=== PATIENT | female | born 1940 | race Two or more races ===

== ENCOUNTER 2022-03-30 18:23 | Emergency (ER) | payer MEDICARE ==
[~2022-03-30] VITALS: Ht 167.6 cm; Wt 49.9 kg
--- NOTE | 2022-03-30 19:25 | NUR ---
PT TAKEN TO RADIOLOGY VIA [facility].
[2022-03-30 20:07] LABS: BASOPHILS % (AUTO) 0.5 % (0.0-2.0); EOSINOPHILS % (AUTO) 3.7 % (0.0-6.0); HEMATOCRIT 32 % (33-45); HEMOGLOBIN 10.8 g/dL (11.5-14.8); LYMPHOCYTES # (AUTO) 1.9 K/uL (0.8-4.8); LYMPHOCYTES % (AUTO) 20.5 % (20.0-44.0); MEAN CORPUSCULAR HGB CONC 33 g/dl (31.0-36.0); MEAN CORPUSCULAR VOLUME 87 fL (82-100); MONOCYTES # (AUTO) 0.9 K/uL (0.1-1.30); MONOCYTES % (AUTO) 9.4 % (2.0-12.0); NEUTROPHILS % (AUTO) 65.9 % (43.0-81.0); PLATELET COUNT (AUTO) 262 K/uL (150-450); RED BLOOD CELL COUNT(AUTO) 3.71 MIL/uL (4.0-5.2); WHITE BLOOD COUNT (AUTO) 9.1 K/uL (4.3-11.0)
[2022-03-30 20:23] LABS: CALCIUM, SERUM 9.1 mg/dL (8.5-10.1); CARBON DIOXIDE 32 mmol/L (21-32); CHLORIDE 106 mmol/L (98-107); CREATININE 0.9 mg/dL (0.6-1.3); GLUCOSE 99 mg/dL (74-106); POTASSIUM 4.3 mmol/L (3.5-5.1); SODIUM SERUM 140 mmol/L (136-145); UREA NITROGEN, BLOOD 20 mg/dL (7-18)
[2022-03-30 20:30] LABS: ALANINE AMINOTRANSFERASE 40 U/L (12-78); ALBUMIN 3.5 g/dL (3.4-5.0); ALKALINE PHOSPHATASE 124 U/L (46-116); ASPARTATE AMINOTRANSFERASE 23 U/L (15-37); BILIRUBIN,TOTAL 0.2 mg/dL (0.2-1.0); TOTAL PROTEIN, SERUM 6.7 g/dL (6.4-8.2)
[2022-03-30 20:31] LABS: ALCOHOL, BLOOD < 3 mg/dL (0-0)
[2022-03-30 20:44] LABS: CREATINE KINASE, TOTAL 49 U/L (26-192)
[2022-03-30] MEDS ORDERED: IV NS 0.9% 1,000 ML IV ONE (21:00)
--- NOTE | 2022-03-30 21:14 | NUR ---
urine collected sent to lab
[2022-03-30 21:28] VITALS: BP 121/66
[2022-03-30 21:28] LABS: BILIRUBIN,URINE NEGATIVE (NEGATIVE); COLOR,URINE YELLOW (YELLOW); LEUKOCYTE ESTERASE ,URINE NEGATIVE (NEGATIVE); NITRITE, URINE NEGATIVE (NEGATIVE); PROTEIN,URINE NEGATIVE (NEGATIVE); UGLUCOSE NEGATIVE (NEGATIVE); UROBILINOGEN,URINE 0.2 EU/dL (0.2)
--- NOTE | 2022-03-30 22:29 | NUR ---
[facility] [phone] [facility] [phone] FACILITY
--- NOTE | 2022-03-30 22:33 | NUR ---
[facility] CALLED FOR BLS BACK TO [facility] ETA - 2 HOURS
--- NOTE | 2022-03-31 00:31 | NUR ---
reprot given to ems at bedside
== END 2022-03-31 00:32 | disposition home or self-care (01) ==
LOC: ER 19:15
DX: G30.9 Alzheimer's disease, unspecified (principal); F02.80 Dementia in other diseases classified elsewhere, unspecified severity, without behavioral disturbance, psychotic disturbance, mood disturbance, and anxiety; I10 Essential (primary) hypertension; Z87.81 Personal history of (healed) traumatic fracture; Z86.69 Personal history of other diseases of the nervous system and sense organs
CPT/HCPCS: 36415; 70450; 70486; 71045; 72125; 72170; 73552; 80048; 80076; 80307; 80320; 81003; 82550; 84484 ×2; 85025; 93005 ×2; 96360; 99285; J7030; G0480

== ENCOUNTER 2022-06-04 17:49 | Inpatient (IN) | payer MEDICARE ==
[~2022-06-04] VITALS: Ht 160 cm; Wt 47.2 kg
--- NOTE | 2022-06-04 19:08 | NUR ---
[facility]IB ADMIN OF [facility] ADMIN NAME IS JODIE [phone], PT WAS SCREAMING YELLING SPITTING OUT FOOD, PILLS, AND TALKING INAPPROPRIATE TO OTHER RESIDENTS AND STAFF BROUGHT IN FOR MEDICAL AND PSYCH EVAL OF MEDS AND BEHAVIOR
--- NOTE | 2022-06-04 19:30 | NUR ---
[facility] at [facility] phone # [phone] address: [address] [place] [address]
--- NOTE | 2022-06-04 19:35 | NUR ---
COVID ANTIGEN SWAB COLLECTED AND SENT TO LAB
--- NOTE | 2022-06-04 20:07 | NUR ---
ACCOUNT MANAGER RELIEF AT PT'S BEDSIDE
[2022-06-04 20:35] LABS: BASOPHILS # (AUTO) 0.1 K/uL (0.0-0.2); BASOPHILS % (AUTO) 0.6 % (0.0-2.0); HEMATOCRIT 32 % (33-45); HEMOGLOBIN 10.5 g/dL (11.5-14.8); LYMPHOCYTES % (AUTO) 17.3 % (20.0-44.0); MEAN CORPUSCULAR HGB CONC 33 g/dl (31.0-36.0); MEAN CORPUSCULAR VOLUME 88 fL (82-100); MONOCYTES % (AUTO) 8.5 % (2.0-12.0); NEUTROPHILS # (AUTO) 8.1 K/uL (1.8-8.9); NEUTROPHILS % (AUTO) 70.6 % (43.0-81.0); PLATELET COUNT (AUTO) 242 K/uL (150-450); RED BLOOD CELL COUNT(AUTO) 3.58 MIL/uL (4.0-5.2); WHITE BLOOD COUNT (AUTO) 11.5 K/uL (4.3-11.0)
--- NOTE | 2022-06-04 20:41 | NUR ---
URINE COLLECTED AND SENT TO LAB
[2022-06-04 20:53] LABS: CALCIUM, SERUM 9.4 mg/dL (8.5-10.1); CARBON DIOXIDE 30 mmol/L (21-32); CHLORIDE 107 mmol/L (98-107); CREATININE 0.9 mg/dL (0.6-1.3); GLUCOSE 106 mg/dL (74-106); POTASSIUM 4.2 mmol/L (3.5-5.1); SODIUM SERUM 141 mmol/L (136-145); UREA NITROGEN, BLOOD 24 mg/dL (7-18)
[2022-06-04 21:01] LABS: ALANINE AMINOTRANSFERASE 34 U/L (12-78); ALBUMIN 3.4 g/dL (3.4-5.0); ALCOHOL, BLOOD < 3 mg/dL (0-0); ALKALINE PHOSPHATASE 95 U/L (46-116); ASPARTATE AMINOTRANSFERASE 18 U/L (15-37); BILIRUBIN,TOTAL 0.2 mg/dL (0.2-1.0); TOTAL PROTEIN, SERUM 6.5 g/dL (6.4-8.2)
[2022-06-04 21:09] LABS: ACETAMINOPHEN < 2 ug/ml (10-30)
[2022-06-04 21:19] LABS: BILIRUBIN,URINE NEGATIVE (NEGATIVE); LEUKOCYTE ESTERASE ,URINE LARGE (NEGATIVE); NITRITE, URINE NEGATIVE (NEGATIVE); PROTEIN,URINE 30 mg/dl (NEGATIVE); UGLUCOSE NEGATIVE (NEGATIVE); UROBILINOGEN,URINE 0.2 EU/dL (0.2)
[2022-06-04 21:28] LABS: COLOR,URINE LIGHT YELLOW (YELLOW)
[2022-06-04 21:37] LABS: BACTERIA,URINE Many /HPF (None Seen); RBC,URINE TOO NUMEROUS TO COUN /HPF (0-2); SQUAMOUS EPITHELIAL CELL,UR Few /HPF (None Seen); WBC,URINE TOO NUMEROUS TO COUN /HPF (0-3)
[2022-06-04] MEDS ORDERED: CEPH500C2 PO (21:45)
[2022-06-04] MEDS ORDERED: CEPHALEXIN MONOHYDRATE 500 MG CAPSULE PO ONE (22:00)
--- NOTE | 2022-06-04 22:17 | NUR ---
CARLEEN BAKER DNP AT PT'S BEDSIDE FOR LUISAL
--- NOTE | 2022-06-04 22:33 | NUR ---
called [facility] THORNE for psych eval
--- NOTE | 2022-06-04 23:28 | NUR ---
[facility] THORNE at bed side for psych eval
--- NOTE | 2022-06-05 00:11 | NUR ---
REPORT GIVEN TO KEN ORNELAS RN FOR NELLY
--- NOTE | 2022-06-05 01:06 | NUR ---
PT PLACED ON A 5150 HOLD FOR DANGER TO OTHERS/ GRAVELY DISABLED BY TOMA THORNE AT 06/05/22 0043
--- NOTE | 2022-06-05 01:15 | NUR ---
PT TRANSFERRED TO GPS UNIT VIA HOSPITAL PROTOCOL. ALL BELONGINGS WITH PT.
[2022-06-05] MEDS ORDERED: MEMA10TA PO (01:28)
[2022-06-05] MEDS ORDERED: ASCO500T10 PO (01:28)
[2022-06-05] MEDS ORDERED: SIME80TA15 PO (01:28)
[2022-06-05] MEDS ORDERED: MULT-754 PO (01:28)
[2022-06-05] MEDS ORDERED: FAMO20TA8 PO (01:28)
[2022-06-05] MEDS ORDERED: QUET100T PO (01:28)
[2022-06-05] MEDS ORDERED: BENA10TA74 PO (01:28)
[2022-06-05] MEDS ORDERED: LEVO25TA7 PO (01:28)
[2022-06-05] MEDS ORDERED: LORA-259 PO (01:28)
[2022-06-05] MEDS ORDERED: DOCU100C36 PO (01:28)
[2022-06-05] MEDS ORDERED: ATEN50TA PO (01:28)
[2022-06-05] MEDS ORDERED: QUET25TA PO (01:28)
[2022-06-05] MEDS ORDERED: GABA-532 PO (01:28)
[2022-06-05] MEDS ORDERED: FERR325T23 PO (01:28)
[2022-06-05] MEDS ORDERED: LITH150C PO (01:28)
--- NOTE | 2022-06-05 01:29 | NUR ---
Spoke to Abby from [facility] phone # [phone]; stated not able to fax pt's med list. Recieved med list via phonecall and med recon done.
[2022-06-05] MEDS ORDERED: ACETAMINOPHEN 325 MG TABLET PO PRN (01:30)
[2022-06-05] MEDS ORDERED: BLOOD SUGAR DIAGNOSTIC 1 EACH STRIP IN ONE (01:30)
[2022-06-05] MEDS ORDERED: MAG HYDROX/AL HYDROX/SIMETH 30 ML UDC PO PRN (01:30)
[2022-06-05] MEDS ORDERED: MAGNESIUM HYDROXIDE 30 ML UDC PO PRN (01:30)
[2022-06-05 01:44] VITALS: BP 142/94
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
--- NOTE | 2022-06-05 04:32 | NUR ---
GPS RN NOTE PATIENT IS SLEEPING COMFORTABLY AT THIS TIME.
--- NOTE | 2022-06-05 04:39 | NUR ---
GPS RN NOTE: CALLED [facility] AND SPOKE TO ULYSSES CANTU TO GET INFORMATION REGARDING PATIENT'S COVID VACCINE BUT ULYSSES CANTU STATED THAT SHE WILL RELAY THE MESSAGE TO AM STAFF AND AM STAFF WILL FAX PATIENT'S COVID VACCINE INFO AT [phone] (GPS UNIT FAX NUMBER). WILL ENDORSE TO AM RN TO FOLLOW UP IN AM.
--- NOTE | 2022-06-05 06:25 | NUR ---
NOTIFIED SAMUEL DURANT TO RECONCILE PATIENT'S HOME MEDS.
--- NOTE | 2022-06-05 06:35 | NUR ---
RN NOTE: NOTIFIED DAUGHTER CALLED PATIENT'S DAUGHTER LILIANE AT [phone] AND NOTIFIED ABOUT PATIENT'S ADMISSION AT [facility]. CHIEF MEDICAL TECHNOLOGIST ALSO ASKED THE DAUGHTER ABOUT PATIENT'S CODE STATUS AND DAUGHTER STATED THAT HER MOTHER WISHES TO BE DNR. LILIANE ALSO PROVIDED COVID VACCINE INFORMATION.
--- NOTE | 2022-06-05 07:30 | NUR ---
GPS RN OPENING NOTE PATIENT IS IN BED, ASLEEP BUT EASILY AROUSABLE. BREATHING UNLABORED AND NOT IN ANY FORM OF DISTRESS. ALL HOSPITAL SAFETY PRECAUTIONS KEPT IN PLACE. WILL CONTINUE TO MONITOR THROUGHOUT SHIFT.
[2022-06-05 08:00] VITALS: BP 92/51
[2022-06-05] MEDS: CEPHALEXIN MONOHYDRATE 500 MG CAPSULE PO SCH ×2 (08:16→16:28)
[2022-06-05 08:30] LABS: CREATININE 0.9 mg/dL (0.6-1.3)
[2022-06-05] MEDS: OLANZAPINE 2.5 MG TABLET PO SCH ×3 (12:38→21:58)
--- NOTE | 2022-06-05 15:00 | NUR ---
RN NOTE NOTIFIED DR. FORD TO RECONCILE HOME MEDS.
--- NOTE | 2022-06-05 15:24 | NUR ---
Initial Discharge Plan: The pt. currently resides at [[facility] [address] [place] [address]; [phone]]. Per DPOA/Daughter,Radha Anand [phone] stated that she would like the pt. to return to [facility] when the pt. is ready for discharge. SCOTT called [facility] and spoke to the fence erector supervisor, Briana [phone] who stated that the pt. is welcome back to the facility when ready to discharge. SCOTT will continue to collaborate with the patient's family and the interdisciplinary team to ensure a safe & proper discharge.
--- NOTE | 2022-06-05 15:26 | NUR ---
Family Contact: SCOTT called her daughter, Radha Anand at [phone] to gather collateral information. Per daughter, Radha, the pt. was diagnosed with Vascular Dementia with Alzheimers components. about 1 year ago and her memory and functioning made steadily declined since. Per Radha,the pt. was hospitalized at [facility] on December 2021 for unmanageable behavior. Radha provided patient's history. SCOTT provided Radha with [facility] Carol CHAVEZ's number and unit number.
[2022-06-05 16:00] VITALS: BP 135/51
[2022-06-05] MEDS: LITHIUM CARBONATE 150 MG CAPSULE PO SCH (16:27)
--- NOTE | 2022-06-05 16:30 | NUR ---
RN NOTE PATIENT WAS OBSERVED TO BE AGITATED AND CURSING AT CHAPTER RELATIONS ADMINISTRATOR WHEN SHE WAS BROUGHT TO ACTIVITY ROOM, STATING THAT SHE JUST WANTS TO STAY IN BED.
--- NOTE | 2022-06-05 18:44 | NUR ---
RN CLOSING NOTE PATIENT'S VITAL SIGNS REMAINED STABLE THROUGHOUT SHIFT. SHE, HOWEVER, REMAINED CONFUSED, AND WAS OCCASIONALLY OBSERVED TO BE AGITATED WHEN GOING OUT OF THE ROOM. ALL OF HER NEEDS WERE ATTENDED TO AND ALL HOSPITAL SAFETY PRECAUTIONS WERE KEPT IN PLACE.WILL ENDORSE TO COMPUTER ART INSTRUCTOR NURSE.
[2022-06-05 20:00] VITALS: BP 157/75
--- NOTE | 2022-06-05 23:00 | NUR ---
NOTIFIED CARLEEN BAKER THAT PATIENT'S HOME MEDS NEEDS TO BE RECONCILED YET, MED RECON DONE BY CARLEEN BAKER.
[2022-06-06] MEDS: LEVOTHYROXINE SODIUM 25 MCG TABLET PO SCH (07:42)
[2022-06-06 07:59] LABS: CHOLESTEROL 183 mg/dL (<200); HDL CHOLESTEROL 66 mg/dL (40-60); LDL 88 mg/dL (0-99); TRIGLYCERIDES 124 mg/dL (30-150)
[2022-06-06 08:00] VITALS: BP 130/58
[2022-06-06] MEDS: ASCORBIC ACID 500 MG TABLET PO SCH (08:25)
[2022-06-06] MEDS: SIMETHICONE 80 MG TAB.CHEW PO SCH (08:25)
[2022-06-06] MEDS: DOCUSATE SODIUM 100 MG CAPSULE PO SCH (08:26)
[2022-06-06] MEDS: MULTIVITAMINS,THERAGRAN 1 UDTAB TABLET PO SCH (08:26)
[2022-06-06] MEDS: OLANZAPINE 2.5 MG TABLET PO SCH ×4 (08:26→21:19)
[2022-06-06] MEDS: BENAZEPRIL HCL 10 MG TABLET PO SCH (08:26)
[2022-06-06] MEDS: FERROUS SULFATE (325 MG) 325 MG/TAB TABLET PO SCH (08:27)
[2022-06-06] MEDS: FAMOTIDINE (20 MG) 20 MG TABLET PO SCH (08:27)
[2022-06-06] MEDS: CEPHALEXIN MONOHYDRATE 500 MG CAPSULE PO SCH ×2 (08:27→16:10)
[2022-06-06] MEDS: LITHIUM CARBONATE 150 MG CAPSULE PO SCH ×2 (08:27→16:10)
[2022-06-06] MEDS: MEMANTINE HCL 5 MG TABLET PO SCH ×2 (08:27→16:10)
[2022-06-06] MEDS: ATENOLOL 50 MG TABLET PO SCH (08:28)
[2022-06-06 16:00] VITALS: BP 110/59
--- NOTE | 2022-06-06 17:14 | NUR ---
RN CLOSING NOTE PATIENT'S VITAL SIGNS REMAINED STABLE THROUGHOUT SHIFT. PT REMAINED CONFUSED, AND WAS OCCASIONALLY OBSERVED TO BE AGITATED WHEN GOING OUT OF THE ROOM. ALL OF HER NEEDS WERE ATTENDED TO AND ALL HOSPITAL SAFETY PRECAUTIONS WERE KEPT IN PLACE. WILL ENDORSE TO PROJECT COORDINATOR RN NURSE FOR NELLY.
--- NOTE | 2022-06-06 19:15 | NUR ---
GPS RN NOTES PATIENT IN BED RESTING COMFORTABLY. AWAKE, ALERT AND ORIENTED X1, NO S/SX OF ACUTE DISTRESS NOTED. PATIENT REMAINS LABILE, CONFUSED, NONSENSICAL AT TIMES. NO VERBALIZATION OF THOUGHTS OR FEELINGS.SAFETY MEASURES IN PLACE. WILL CONTINUE TO MONITOR Q15MIN ROUNDS FOR SAFETY AND BEHAVIOR.
[2022-06-06 20:00] VITALS: BP 127/71
[2022-06-07] MEDS: TEMAZEPAM 7.5 MG CAPSULE PO PRN (00:52)
[2022-06-07] MEDS: LEVOTHYROXINE SODIUM 25 MCG TABLET PO SCH (06:16)
[2022-06-07 08:00] VITALS: BP 102/72
[2022-06-07] MEDS: FERROUS SULFATE (325 MG) 325 MG/TAB TABLET PO SCH (08:49)
[2022-06-07] MEDS: SIMETHICONE 80 MG TAB.CHEW PO SCH (08:49)
[2022-06-07] MEDS: FAMOTIDINE (20 MG) 20 MG TABLET PO SCH (08:50)
[2022-06-07] MEDS: OLANZAPINE 2.5 MG TABLET PO SCH ×4 (08:50→21:22)
[2022-06-07] MEDS: ASCORBIC ACID 500 MG TABLET PO SCH (08:50)
[2022-06-07] MEDS: MEMANTINE HCL 5 MG TABLET PO SCH ×2 (08:50→16:20)
[2022-06-07] MEDS: DOCUSATE SODIUM 100 MG CAPSULE PO SCH (08:50)
[2022-06-07] MEDS: LITHIUM CARBONATE 150 MG CAPSULE PO SCH ×2 (08:51→16:20)
[2022-06-07] MEDS: BENAZEPRIL HCL 10 MG TABLET PO SCH (08:51)
[2022-06-07] MEDS: ATENOLOL 50 MG TABLET PO SCH (08:52)
[2022-06-07] MEDS: MULTIVITAMINS,THERAGRAN 1 UDTAB TABLET PO SCH (08:52)
[2022-06-07] MEDS: CEPHALEXIN MONOHYDRATE 500 MG CAPSULE PO SCH ×2 (08:55→16:53)
[2022-06-07 16:00] VITALS: BP 122/57
--- NOTE | 2022-06-07 19:18 | NUR ---
RN OPENING NOTE PATIENT IN BED, AWAKE. PATIENT IS ON RA, TOLERATING WELL, NO SOB OR RESPIRATORY DISTRESS NOTED. PATIENT IS A/O X 1, CONFUSED. SAFETY MEASURES IN PLACE: BED LOCKED AND IN LOWEST POSITION, BED ALARM ON. PATIENT DOES NOT REPORT OF ANY SI. WILL MONITOR PATIENT Q15 MIN FOR PATIENT SAFETY.
[2022-06-07 20:00] VITALS: BP 128/60
[2022-06-08] MEDS: LEVOTHYROXINE SODIUM 25 MCG TABLET PO SCH (06:08)
--- NOTE | 2022-06-08 06:08 | NUR ---
RN NOTE PATIENT REFUSED LEVOTHYROXINE, RISK AND BENEFITS EXPLAINED BUT PATIENT STILL KEPT SAYING "NO, I DON'T WANT TO TAKE THAT".
[2022-06-08 08:00] VITALS: BP 110/69
[2022-06-08] MEDS: LITHIUM CARBONATE 150 MG CAPSULE PO SCH ×2 (08:35→16:19)
[2022-06-08] MEDS: MULTIVITAMINS,THERAGRAN 1 UDTAB TABLET PO SCH (08:35)
[2022-06-08] MEDS: MEMANTINE HCL 5 MG TABLET PO SCH ×2 (08:35→16:19)
[2022-06-08] MEDS: SIMETHICONE 80 MG TAB.CHEW PO SCH (08:35)
[2022-06-08] MEDS: ASCORBIC ACID 500 MG TABLET PO SCH (08:36)
[2022-06-08] MEDS: OLANZAPINE 2.5 MG TABLET PO SCH ×4 (08:36→21:19)
[2022-06-08] MEDS: FAMOTIDINE (20 MG) 20 MG TABLET PO SCH (08:36)
[2022-06-08] MEDS: BENAZEPRIL HCL 10 MG TABLET PO SCH (08:36)
[2022-06-08] MEDS: CEPHALEXIN MONOHYDRATE 500 MG CAPSULE PO SCH ×2 (08:36→16:19)
[2022-06-08] MEDS: ATENOLOL 50 MG TABLET PO SCH (08:37)
[2022-06-08] MEDS: DOCUSATE SODIUM 100 MG CAPSULE PO SCH (08:37)
[2022-06-08] MEDS: FERROUS SULFATE (325 MG) 325 MG/TAB TABLET PO SCH (08:49)
[2022-06-08 16:00] VITALS: BP 118/68
--- NOTE | 2022-06-08 18:42 | NUR ---
RN NOTES PATIENT RESTING IN BED. ASLEEP, EASILY AROUSED. VERBALLY RESPONSIVE, A/O X1, WITH CONFUSION. NO SIGNS OF ACUTE RESPIRATORY DISTRESS NOTED. COMPLIANT WITH MEDS. UP IN JAJA CHAIR EARLIER OF THE SHIFT SECONDARY TO EPISODES OF TRYING TO GET OOB, HIGH FALL RISK. SAFETY MEASURES MAINTAINED. BED IN LOWEST AND LOCKED POSITION, SIDE RAILS UP, BED ALARM ON, NEEDS ATTENDED. WILL ENDORSE TO NEXT SHIFT FOR CONTINUITY OF CARE.
[2022-06-08 20:12] VITALS: BP 117/66
--- NOTE | 2022-06-09 07:30 | NUR ---
GPS RN OPENING NOTE PATIENT IN BED, ASLEEP . ON ROOM AIR , TOLERATING WELL, NO SOB OR RESPIRATORY DISTRESS NOTED. PATIENT IS A/O X 1, CONFUSED. SAFETY MEASURES IN PLACE: BED LOCKED AND IN LOWEST POSITION, BED ALARM ON. PATIENT DOES NOT REPORT OF ANY SI. WILL MONITOR PATIENT Q15 MIN FOR PATIENT SAFETY.
[2022-06-09 08:00] VITALS: BP 99/59
[2022-06-09] MEDS: DOCUSATE SODIUM 100 MG CAPSULE PO SCH ×2 (09:00→09:02)
[2022-06-09] MEDS: SIMETHICONE 80 MG TAB.CHEW PO SCH ×2 (09:00→09:12)
[2022-06-09] MEDS: MEMANTINE HCL 5 MG TABLET PO SCH ×2 (09:00→09:07)
[2022-06-09] MEDS: CEPHALEXIN MONOHYDRATE 500 MG CAPSULE PO SCH ×2 (09:00→09:03)
[2022-06-09] MEDS: MULTIVITAMINS,THERAGRAN 1 UDTAB TABLET PO SCH ×2 (09:00→09:09)
[2022-06-09] MEDS: FERROUS SULFATE (325 MG) 325 MG/TAB TABLET PO SCH ×2 (09:00→09:02)
[2022-06-09] MEDS: LEVOTHYROXINE SODIUM 25 MCG TABLET PO SCH ×2 (09:00→09:02)
[2022-06-09] MEDS: OLANZAPINE 2.5 MG TABLET PO SCH ×4 (09:00→21:12)
[2022-06-09] MEDS: BENAZEPRIL HCL 10 MG TABLET PO SCH ×2 (09:00→09:03)
[2022-06-09] MEDS: ATENOLOL 50 MG TABLET PO SCH ×2 (09:00→09:04)
[2022-06-09] MEDS: ASCORBIC ACID 500 MG TABLET PO SCH ×2 (09:00→09:03)
[2022-06-09] MEDS: FAMOTIDINE (20 MG) 20 MG TABLET PO SCH ×2 (09:00→09:04)
[2022-06-09] MEDS: LITHIUM CARBONATE 150 MG CAPSULE PO SCH ×2 (09:00→09:07)
--- NOTE | 2022-06-09 12:08 | NUR ---
RN NOTES PATIENT REFUSED TO TAKE THE 0900 DUE MEDS AND OFFERED 3X STILL REFUSING
[2022-06-09] MEDS: LORAZEPAM 0.5 MG TABLET PO PRN (15:05)
--- NOTE | 2022-06-09 15:10 | NUR ---
RN NOTE PATIENT NOTED TO BE ANXIOUS AND TRIED TO CLIMB OUT OF BED ,ATIVAN 0.5MG GIVEN ORDERED
[2022-06-09 16:00] VITALS: BP 101/63
--- NOTE | 2022-06-09 18:27 | NUR ---
GPS RN CLOSING NOTES PATIENT RESTING IN BED. AWAKE, A/O X1, VERBALLY RESPONSIVE.DUE MEDS GIVEN ORDERED AND COMPLIANT WITH CARE , NO SIGNS OF ACUTE RESPIRATORY DISTRESS NOTED. PATIENT COOPERATIVE, PLEASANTLY CONFUSED, REDIRECTABLE. SAFETY MEASURES MAINTAINED. BED IN LOWEST AND LOCKED POSITION, SIDE RAILS UP, ENDORSED TO NEXT SHIFT
[2022-06-09 20:08] VITALS: BP 139/65
[2022-06-10 08:00] VITALS: BP_SYST 116; BP_SYST 125; BP_DIAS 60; BP_DIAS 87
[2022-06-10] MEDS: OLANZAPINE 2.5 MG TABLET PO SCH ×4 (08:47→21:52)
[2022-06-10] MEDS: LITHIUM CARBONATE 150 MG CAPSULE PO SCH ×2 (08:47→16:00)
[2022-06-10] MEDS: SIMETHICONE 80 MG TAB.CHEW PO SCH (08:47)
[2022-06-10] MEDS: ASCORBIC ACID 500 MG TABLET PO SCH (08:48)
[2022-06-10] MEDS: CEPHALEXIN MONOHYDRATE 500 MG CAPSULE PO SCH (08:48)
[2022-06-10] MEDS: MEMANTINE HCL 5 MG TABLET PO SCH ×2 (08:48→16:00)
[2022-06-10] MEDS: DOCUSATE SODIUM 100 MG CAPSULE PO SCH (08:48)
[2022-06-10] MEDS: MULTIVITAMINS,THERAGRAN 1 UDTAB TABLET PO SCH (08:48)
[2022-06-10] MEDS: FAMOTIDINE (20 MG) 20 MG TABLET PO SCH (08:48)
[2022-06-10] MEDS: FERROUS SULFATE (325 MG) 325 MG/TAB TABLET PO SCH (08:48)
[2022-06-10] MEDS: BENAZEPRIL HCL 10 MG TABLET PO SCH (08:49)
[2022-06-10] MEDS: ATENOLOL 50 MG TABLET PO SCH (08:49)
[2022-06-10 16:00] VITALS: BP 104/55
[2022-06-10 19:56] VITALS: BP 109/54
[2022-06-10 20:00] VITALS: BP 109/54
[2022-06-11] MEDS: LEVOTHYROXINE SODIUM 25 MCG TABLET PO SCH (07:32)
[2022-06-11 08:00] VITALS: BP 101/56
[2022-06-11] MEDS: SIMETHICONE 80 MG TAB.CHEW PO SCH (08:21)
[2022-06-11] MEDS: MULTIVITAMINS,THERAGRAN 1 UDTAB TABLET PO SCH (08:21)
[2022-06-11] MEDS: LITHIUM CARBONATE 150 MG CAPSULE PO SCH ×2 (08:21→17:00)
[2022-06-11] MEDS: DOCUSATE SODIUM 100 MG CAPSULE PO SCH (08:21)
[2022-06-11] MEDS: MEMANTINE HCL 5 MG TABLET PO SCH ×2 (08:21→16:59)
[2022-06-11] MEDS: FERROUS SULFATE (325 MG) 325 MG/TAB TABLET PO SCH (08:22)
[2022-06-11] MEDS: FAMOTIDINE (20 MG) 20 MG TABLET PO SCH (08:22)
[2022-06-11] MEDS: BENAZEPRIL HCL 10 MG TABLET PO SCH (08:22)
[2022-06-11] MEDS: ATENOLOL 50 MG TABLET PO SCH (08:22)
[2022-06-11] MEDS: ASCORBIC ACID 500 MG TABLET PO SCH (08:24)
[2022-06-11] MEDS: OLANZAPINE 2.5 MG TABLET PO SCH ×4 (09:24→21:26)
--- NOTE | 2022-06-11 09:46 | NUR ---
Individual Therapy: SW met with pt to conduct brief therapy. Pt appeared confused and was barely alert and oriented to self. Pt unable to have a proper conversation at this time due to his confusion.
[2022-06-11 16:00] VITALS: BP 149/68
[2022-06-11 20:11] VITALS: BP 111/49
[2022-06-12] MEDS: LEVOTHYROXINE SODIUM 25 MCG TABLET PO SCH (07:29)
[2022-06-12 08:00] VITALS: BP 107/59
[2022-06-12] MEDS: MEMANTINE HCL 5 MG TABLET PO SCH ×2 (08:53→17:08)
[2022-06-12] MEDS: SIMETHICONE 80 MG TAB.CHEW PO SCH (08:53)
[2022-06-12] MEDS: ATENOLOL 50 MG TABLET PO SCH (08:54)
[2022-06-12] MEDS: DOCUSATE SODIUM 100 MG CAPSULE PO SCH (08:54)
[2022-06-12] MEDS: MULTIVITAMINS,THERAGRAN 1 UDTAB TABLET PO SCH (08:55)
[2022-06-12] MEDS: ASCORBIC ACID 500 MG TABLET PO SCH (08:55)
[2022-06-12] MEDS: FERROUS SULFATE (325 MG) 325 MG/TAB TABLET PO SCH (08:55)
[2022-06-12] MEDS: ENSURE ENLIVE 237 ML LIQUID (VANILLA) PO SCH (08:55)
[2022-06-12] MEDS: LITHIUM CARBONATE 150 MG CAPSULE PO SCH ×2 (08:56→17:10)
[2022-06-12] MEDS: BENAZEPRIL HCL 10 MG TABLET PO SCH (08:58)
[2022-06-12] MEDS: FAMOTIDINE (20 MG) 20 MG TABLET PO SCH (08:59)
[2022-06-12] MEDS: OLANZAPINE 2.5 MG TABLET PO SCH ×3 (09:20→17:09)
--- NOTE | 2022-06-12 14:08 | NUR ---
Court Notification: SW contacted pt's daughter Radha ([phone]) and left a voicemail.
--- NOTE | 2022-06-12 14:09 | NUR ---
Court Hearing: Patient's court hearing for 3750 was today and it was upheld for GD.
[2022-06-12 16:00] VITALS: BP 100/66
[2022-06-12] MEDS: OLANZAPINE 5 MG TABLET PO SCH (21:25)
[2022-06-12] MEDS: TEMAZEPAM 7.5 MG CAPSULE PO PRN (22:58)
[2022-06-13] MEDS: LEVOTHYROXINE SODIUM 25 MCG TABLET PO SCH (06:42)
[2022-06-13 08:00] VITALS: BP 133/62
--- NOTE | 2022-06-13 08:14 | NUR ---
Facility Contact: SW called [facility] and left a detailed voicemail to contact centre supervisor, Briana [phone] that pt's dc will be sometime next week.
--- NOTE | 2022-06-13 09:53 | NUR ---
Facility Contact: SCOTT called [facility] and spoke with boat outfitting supervisor, Briana [phone] and notified that pt will be ready for dc sometime next week. She requested medication list ([phone]) and SCOTT sent the list. Briana stated that she may be able to provide transportation and to check in with her next week.
[2022-06-13] MEDS: DOCUSATE SODIUM 100 MG CAPSULE PO SCH (10:48)
[2022-06-13] MEDS: FERROUS SULFATE (325 MG) 325 MG/TAB TABLET PO SCH (10:49)
[2022-06-13] MEDS: ENSURE ENLIVE 237 ML LIQUID (VANILLA) PO SCH (10:49)
[2022-06-13] MEDS: LITHIUM CARBONATE 150 MG CAPSULE PO SCH ×2 (10:50→17:13)
[2022-06-13] MEDS: BENAZEPRIL HCL 10 MG TABLET PO SCH (10:53)
[2022-06-13] MEDS: SIMETHICONE 80 MG TAB.CHEW PO SCH (10:54)
[2022-06-13] MEDS: MEMANTINE HCL 5 MG TABLET PO SCH ×2 (10:54→17:13)
[2022-06-13] MEDS: ATENOLOL 50 MG TABLET PO SCH (10:55)
[2022-06-13] MEDS: MULTIVITAMINS,THERAGRAN 1 UDTAB TABLET PO SCH (10:55)
[2022-06-13] MEDS: FAMOTIDINE (20 MG) 20 MG TABLET PO SCH (10:55)
[2022-06-13] MEDS: OLANZAPINE 2.5 MG TABLET PO SCH ×2 (10:56→17:13)
[2022-06-13] MEDS: ASCORBIC ACID 500 MG TABLET PO SCH (10:56)
[2022-06-13 16:00] VITALS: BP_SYST 100; BP_SYST 131; BP_DIAS 50; BP_DIAS 72
--- NOTE | 2022-06-13 19:30 | NUR ---
GPS RN OPENING NOTES: RECEIVED PATIENT IN BED, AWAKE, A/O X1. APPEARS DEPRESSED, FLAT AFFECT, EASILY AGITATED, ANXIOUS, DISORGANIZED, CONFUSED, UNCOOPERATIVE. NO S/S OF DISTRESS. RESPIRATION EVEN AND UNLABORED WITH EQUAL RISE AND FALL OF THE CHEST, ON ROOM AIR. OFFERED FLUID AND SNACKS TOLERATED. BED IN LOWEST POSITION AND LOCKED, SIDE RAILS UP X2 FOR SAFETY. WILL CONTINUE TO MONITOR Q15 FOR MOOD, SAFETY AND BEHAVIOR.
[2022-06-13 20:00] VITALS: BP 101/69
[2022-06-13] MEDS: OLANZAPINE 5 MG TABLET PO SCH (22:07)
--- NOTE | 2022-06-13 22:28 | NUR ---
GPS RN NOTES: PATIENT C/O R HIP PAIN. TYLENOL 325MG 2TABS GIVEN PO AT 2213. WILL CONTINUE TO MONITOR.
[2022-06-13] MEDS: TEMAZEPAM 7.5 MG CAPSULE PO PRN (23:22)
--- NOTE | 2022-06-13 23:23 | NUR ---
GPS RN NOTES: PATIENT REQUESTED FOR SLEEP MEDICATION. RESTORIL 7.5MG GIVEN PO AT [phone]. WILL CONTINUE TO MONITOR.
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
[2022-06-14] MEDS: LEVOTHYROXINE SODIUM 25 MCG TABLET PO SCH (07:56)
[2022-06-14 08:00] VITALS: BP 120/60
[2022-06-14] MEDS: LITHIUM CARBONATE 150 MG CAPSULE PO SCH ×2 (08:48→16:12)
[2022-06-14] MEDS: FERROUS SULFATE (325 MG) 325 MG/TAB TABLET PO SCH (08:48)
[2022-06-14] MEDS: FAMOTIDINE (20 MG) 20 MG TABLET PO SCH (08:48)
[2022-06-14] MEDS: ASCORBIC ACID 500 MG TABLET PO SCH (08:48)
[2022-06-14] MEDS: MULTIVITAMINS,THERAGRAN 1 UDTAB TABLET PO SCH (08:48)
[2022-06-14] MEDS: OLANZAPINE 2.5 MG TABLET PO SCH ×2 (08:48→16:12)
[2022-06-14] MEDS: SIMETHICONE 80 MG TAB.CHEW PO SCH (08:48)
[2022-06-14] MEDS: MEMANTINE HCL 5 MG TABLET PO SCH ×2 (08:48→16:11)
[2022-06-14] MEDS: DOCUSATE SODIUM 100 MG CAPSULE PO SCH (08:49)
[2022-06-14] MEDS: BENAZEPRIL HCL 10 MG TABLET PO SCH (08:49)
[2022-06-14] MEDS: ATENOLOL 50 MG TABLET PO SCH (08:49)
[2022-06-14] MEDS: ENSURE ENLIVE 237 ML LIQUID (VANILLA) PO SCH (09:02)
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
[2022-06-14 16:00] VITALS: BP 112/62
--- NOTE | 2022-06-14 18:44 | NUR ---
GPS RN CLOSING NOTE PATIENT RESTING IN BED. PT A/O X1, CONFUSED, REORIENTED PT NEEDED. NO S/S OF DISTRESS. RESPIRATION EVEN AND UNLABORED, ON ROOM AIR. PT'S IS CALM WITH NO EPISODE OF AGGRESSIVENESS AND UNTOWARD BEHAVIOR NOTED AT THIS TIME. BED IN LOWEST POSITION AND LOCKED, SIDE RAILS UP X2 FOR SAFETY. WILL ENDORSED TO WAREHOUSE ASSEMBLY WORKER NURSE FOR NELLY.
--- NOTE | 2022-06-14 19:39 | NUR ---
GPS RN OPENING NOTES: RECEIVED PATIENT SLEEPING IN BED. NO S/S OF DISTRESS. RESPIRATION EVEN AND UNLABORED WITH EQUAL RISE AND FALL OF THE CHEST, ON ROOM AIR. BED IN LOWEST POSITION AND LOCKED, SIDE RAILS UP X2 FOR SAFETY. WILL CONTINUE TO MONITOR Q15 FOR MOOD, SAFETY AND BEHAVIOR.
[2022-06-14 20:00] VITALS: BP 107/71
[2022-06-14] MEDS: OLANZAPINE 5 MG TABLET PO SCH (21:43)
--- NOTE | 2022-06-15 07:00 | NUR ---
GPS RN OPENING NOTES PATIENT LAYING IN BED, A/O X 1, LABILE, PASSIVE, WITHDRAWN, CONFUSED. BREATHING EVEN AND UNLABORED, NO COMPLAINTS OF PAIN OR DISCOMFORT AT THIS TIME. SAFETY MEASURES IN PLACE: BED IN LOWEST LOCKED POSITION, SIDE RAILS UP X 2, CALL LIGHT WITHIN REACH. WILL CONTINUE TO MONITOR.
[2022-06-15 07:20] LABS: BASOPHILS % (AUTO) 0.4 % (0.0-2.0); EOSINOPHILS % (AUTO) 4.9 % (0.0-6.0); HEMATOCRIT 29 % (33-45); HEMOGLOBIN 9.5 g/dL (11.5-14.8); LYMPHOCYTES # (AUTO) 1.9 K/uL (0.8-4.8); LYMPHOCYTES % (AUTO) 23.8 % (20.0-44.0); MEAN CORPUSCULAR HGB CONC 33 g/dl (31.0-36.0); MEAN CORPUSCULAR VOLUME 88 fL (82-100); MONOCYTES # (AUTO) 0.8 K/uL (0.1-1.30); MONOCYTES % (AUTO) 9.5 % (2.0-12.0); NEUTROPHILS # (AUTO) 4.9 K/uL (1.8-8.9); NEUTROPHILS % (AUTO) 61.4 % (43.0-81.0); PLATELET COUNT (AUTO) 217 K/uL (150-450); RED BLOOD CELL COUNT(AUTO) 3.23 MIL/uL (4.0-5.2); WHITE BLOOD COUNT (AUTO) 7.9 K/uL (4.3-11.0)
[2022-06-15] MEDS: LEVOTHYROXINE SODIUM 25 MCG TABLET PO SCH (07:28)
[2022-06-15 07:47] LABS: ALANINE AMINOTRANSFERASE 35 U/L (12-78); ALBUMIN 2.9 g/dL (3.4-5.0); ALKALINE PHOSPHATASE 76 U/L (46-116); ASPARTATE AMINOTRANSFERASE 23 U/L (15-37); BILIRUBIN,TOTAL 0.3 mg/dL (0.2-1.0); CARBON DIOXIDE 30 mmol/L (21-32); CHLORIDE 110 mmol/L (98-107); CREATININE 0.7 mg/dL (0.6-1.3); GLUCOSE 96 mg/dL (74-106); POTASSIUM 3.9 mmol/L (3.5-5.1); SODIUM SERUM 144 mmol/L (136-145); TOTAL PROTEIN, SERUM 5.6 g/dL (6.4-8.2); UREA NITROGEN, BLOOD 21 mg/dL (7-18)
[2022-06-15 08:00] VITALS: BP 109/71
[2022-06-15] MEDS: ASCORBIC ACID 500 MG TABLET PO SCH (08:44)
[2022-06-15] MEDS: FAMOTIDINE (20 MG) 20 MG TABLET PO SCH (08:45)
[2022-06-15] MEDS: SIMETHICONE 80 MG TAB.CHEW PO SCH (08:45)
[2022-06-15] MEDS: DOCUSATE SODIUM 100 MG CAPSULE PO SCH (08:45)
[2022-06-15] MEDS: LITHIUM CARBONATE 150 MG CAPSULE PO SCH ×2 (08:45→16:31)
[2022-06-15] MEDS: FERROUS SULFATE (325 MG) 325 MG/TAB TABLET PO SCH (08:45)
[2022-06-15] MEDS: MULTIVITAMINS,THERAGRAN 1 UDTAB TABLET PO SCH (08:45)
[2022-06-15] MEDS: OLANZAPINE 2.5 MG TABLET PO SCH ×2 (08:46→16:32)
[2022-06-15] MEDS: MEMANTINE HCL 5 MG TABLET PO SCH ×2 (08:46→16:32)
[2022-06-15] MEDS: BENAZEPRIL HCL 10 MG TABLET PO SCH (08:47)
[2022-06-15] MEDS: ATENOLOL 50 MG TABLET PO SCH (08:47)
[2022-06-15] MEDS: ENSURE ENLIVE 237 ML LIQUID (VANILLA) PO SCH (08:47)
[2022-06-15 15:04] LABS: BILIRUBIN,URINE NEGATIVE (NEGATIVE); COLOR,URINE YELLOW (YELLOW); LEUKOCYTE ESTERASE ,URINE MODERATE (NEGATIVE); NITRITE, URINE NEGATIVE (NEGATIVE); PROTEIN,URINE NEGATIVE (NEGATIVE); UGLUCOSE NEGATIVE (NEGATIVE); UROBILINOGEN,URINE 0.2 EU/dL (0.2)
[2022-06-15 15:32] LABS: RBC,URINE 0-2 /HPF (0-2)
[2022-06-15 15:33] LABS: BACTERIA,URINE 1+ /HPF (None Seen); SQUAMOUS EPITHELIAL CELL,UR 0-2 /HPF (None Seen); WBC,URINE 21-50 /HPF (0-3)
[2022-06-15 16:00] VITALS: BP 100/48
[2022-06-15] MEDS: LORAZEPAM 0.5 MG TABLET PO PRN (20:00)
--- NOTE | 2022-06-15 20:02 | NUR ---
RN NOTES: ANXIETY PT. VERY ANXIOUS , YELLING SCREAMING , RESTLESS, NONREDIRECTABLE PRN ATIVAN 0.5 MG PO GIVEN FOR PT. BEHAVIOR.
[2022-06-15 20:21] VITALS: BP 129/58
--- NOTE | 2022-06-15 20:32 | NUR ---
RN NOTES: PATIENT SITTING IN THE HALLWAY. NO S/SX OF ACUTE DISTRESS NOTED. PATIENT REMAINS CONFUSED, ANXIOUS, DISORGANIZED, PARANOID HYPERVERBAL,SCREAMING YELLING, REFUSED TO STAY IN HER BED , HIGH FALL RISK ,PRN ATIVAN GIVEN,NONREDIRECTABLE NEEDS FREQUENT REDIRECTION. DENIES SI/HI AT THIS TIME. SAFETY MEASURES IN PLACE. WILL CONTINUE TO MONITOR Q15MIN ROUNDS FOR SAFETY AND BEHAVIOR.
[2022-06-15] MEDS: OLANZAPINE 5 MG TABLET PO SCH (21:47)
--- NOTE | 2022-06-16 00:08 | NUR ---
RN NOTES: PT. REFUSED FULL BODY SKIN ,ASSESSMENT AND PICTURES TAKEN , PT. BEHAVIOR UNCOOPERTIVE, AGGRESSIVE ,PARANOID, NON COMPLIANT WITH CARE , AT THIS TIME, ENCOURAGED , STRONGLY REFUSED FULL BODY SKIN ASSESSMENT.
[2022-06-16 08:00] VITALS: BP 122/50
[2022-06-16] MEDS: OLANZAPINE 2.5 MG TABLET PO SCH ×2 (10:42→16:05)
[2022-06-16] MEDS: ASCORBIC ACID 500 MG TABLET PO SCH (10:42)
[2022-06-16] MEDS: FAMOTIDINE (20 MG) 20 MG TABLET PO SCH (10:43)
[2022-06-16] MEDS: FERROUS SULFATE (325 MG) 325 MG/TAB TABLET PO SCH (10:43)
[2022-06-16] MEDS: SIMETHICONE 80 MG TAB.CHEW PO SCH (10:43)
[2022-06-16] MEDS: LITHIUM CARBONATE 150 MG CAPSULE PO SCH ×2 (10:43→16:05)
[2022-06-16] MEDS: DOCUSATE SODIUM 100 MG CAPSULE PO SCH (10:43)
[2022-06-16] MEDS: LEVOTHYROXINE SODIUM 25 MCG TABLET PO SCH (10:43)
[2022-06-16] MEDS: BENAZEPRIL HCL 10 MG TABLET PO SCH (10:43)
[2022-06-16] MEDS: ATENOLOL 50 MG TABLET PO SCH (10:43)
[2022-06-16] MEDS: MEMANTINE HCL 5 MG TABLET PO SCH ×2 (10:44→16:05)
[2022-06-16] MEDS: ENSURE ENLIVE 237 ML LIQUID (VANILLA) PO SCH (10:44)
[2022-06-16] MEDS: MULTIVITAMINS,THERAGRAN 1 UDTAB TABLET PO SCH (10:44)
[2022-06-16 16:00] VITALS: BP 119/52
[2022-06-16] MEDS: CEFTRIAXONE 1 G VIAL IM SCH (16:00)
[2022-06-16 20:09] VITALS: BP 112/55
[2022-06-16] MEDS: TEMAZEPAM 7.5 MG CAPSULE PO PRN (21:34)
[2022-06-16] MEDS: OLANZAPINE 5 MG TABLET PO SCH (21:34)
--- NOTE | 2022-06-16 21:34 | NUR ---
GPS RN NOTE PT ASKING FOR SLEEPING MED. UNABLE TO SLEEP. RESTORIL 7.5 MG PO GIVEN. CONTINUE TO MONITOR HIM.
--- NOTE | 2022-06-16 22:34 | NUR ---
GPS RN NOTE PT FALL BACK TO SLEEP. NO DISTRESS NOTED.
[2022-06-17 08:00] VITALS: BP 100/57
[2022-06-17] MEDS: FERROUS SULFATE (325 MG) 325 MG/TAB TABLET PO SCH (08:58)
[2022-06-17] MEDS: SIMETHICONE 80 MG TAB.CHEW PO SCH (08:58)
[2022-06-17] MEDS: LITHIUM CARBONATE 150 MG CAPSULE PO SCH ×2 (08:58→17:28)
[2022-06-17] MEDS: MULTIVITAMINS,THERAGRAN 1 UDTAB TABLET PO SCH (08:58)
[2022-06-17] MEDS: OLANZAPINE 2.5 MG TABLET PO SCH ×2 (08:59→17:28)
[2022-06-17] MEDS: BENAZEPRIL HCL 10 MG TABLET PO SCH (09:00)
[2022-06-17] MEDS: ASCORBIC ACID 500 MG TABLET PO SCH (09:00)
[2022-06-17] MEDS: LEVOTHYROXINE SODIUM 25 MCG TABLET PO SCH (09:00)
[2022-06-17] MEDS: DOCUSATE SODIUM 100 MG CAPSULE PO SCH (09:00)
[2022-06-17] MEDS: ATENOLOL 50 MG TABLET PO SCH (09:00)
[2022-06-17] MEDS: FAMOTIDINE (20 MG) 20 MG TABLET PO SCH (09:00)
[2022-06-17] MEDS: ENSURE ENLIVE 237 ML LIQUID (VANILLA) PO SCH (09:01)
[2022-06-17] MEDS: MEMANTINE HCL 5 MG TABLET PO SCH ×2 (09:01→17:28)
--- NOTE | 2022-06-17 09:06 | NUR ---
rn notes patient selective with medication refused some of them.
[2022-06-17] MEDS: CEFTRIAXONE 1 G VIAL IM SCH (15:36)
[2022-06-17 16:00] VITALS: BP 121/67
[2022-06-17 20:45] VITALS: BP 108/56
[2022-06-17] MEDS: OLANZAPINE 5 MG TABLET PO SCH (21:16)
[2022-06-17] MEDS: TEMAZEPAM 7.5 MG CAPSULE PO PRN (21:16)
--- NOTE | 2022-06-17 21:16 | NUR ---
GPS RN NOTE PT C/O UNABLE TO SLEEP, RESTORIL 7.5 MG PO GIVEN FOR INSOMNIA. CONTINUE TO MONITOR HER.
--- NOTE | 2022-06-17 22:16 | NUR ---
GPS RN NOTE PT FALL BACK TO SLEEP.
--- NOTE | 2022-06-18 07:30 | NUR ---
RN OPENING NOTE PATIENT IS IN BED ASLEEP BUT EASILY AROUSABLE, ALERT AND ORIENTED X 1. ON ROOM AIR, BREATHING UNLABORED AND NOT IN ANY FORM OF DISTRESS. NO COMPLAINTS OF THIS TIME. ALL HOSPITAL SAFETY PRECAUTIONS IN PLACE. WILL CONTINUE TO MONITOR THROUGHOUT SHIFT.
[2022-06-18 08:00] VITALS: BP 114/76
[2022-06-18] MEDS: MEMANTINE HCL 5 MG TABLET PO SCH ×2 (08:17→16:33)
[2022-06-18] MEDS: LEVOTHYROXINE SODIUM 25 MCG TABLET PO SCH (08:18)
[2022-06-18] MEDS: ASCORBIC ACID 500 MG TABLET PO SCH (08:18)
[2022-06-18] MEDS: SIMETHICONE 80 MG TAB.CHEW PO SCH (08:18)
[2022-06-18] MEDS: BENAZEPRIL HCL 10 MG TABLET PO SCH (08:18)
[2022-06-18] MEDS: FERROUS SULFATE (325 MG) 325 MG/TAB TABLET PO SCH (08:19)
[2022-06-18] MEDS: DOCUSATE SODIUM 100 MG CAPSULE PO SCH (08:19)
[2022-06-18] MEDS: MULTIVITAMINS,THERAGRAN 1 UDTAB TABLET PO SCH (08:19)
[2022-06-18] MEDS: ATENOLOL 50 MG TABLET PO SCH (08:19)
[2022-06-18] MEDS: FAMOTIDINE (20 MG) 20 MG TABLET PO SCH (08:21)
[2022-06-18] MEDS: LITHIUM CARBONATE 150 MG CAPSULE PO SCH ×2 (08:22→16:32)
[2022-06-18] MEDS: ENSURE ENLIVE 237 ML LIQUID (VANILLA) PO SCH (08:23)
[2022-06-18] MEDS: OLANZAPINE 2.5 MG TABLET PO SCH ×2 (08:35→16:33)
[2022-06-18] MEDS: CEFTRIAXONE 1 G VIAL IM SCH (14:23)
[2022-06-18 16:00] VITALS: BP 102/70
--- NOTE | 2022-06-18 18:43 | NUR ---
RN CLOSING NOTE PATIENT IS AT PRESENT SITTING ON JAJA CHAIR IN THE ACTIVITY ROOM. PATIENT REMAINED STABLE THROUGHOUT SHIFT, ABLE TO MAKE NEEDS KNOWN AND IS COMPLIANT TO MEDICATIONS. BREATHING UNLABORED AND NOT IN ANY FORM OF DISTRESS. ENCOURAGED ORAL INTAKE BY OFFERING FLUIDS AND SNACKS WHILE MAINTAINING ASPIRATION PRECAUTION. ALL HOSPITAL SAFETY PRECAUTIONS IN PLACE. WILL ENDORSE TO SAMPLE MOUNTER NURSE.
[2022-06-18 20:29] VITALS: BP 104/52
[2022-06-18] MEDS: OLANZAPINE 5 MG TABLET PO SCH (21:17)
[2022-06-18] MEDS: TEMAZEPAM 7.5 MG CAPSULE PO PRN (21:17)
[2022-06-19] MEDS: LEVOTHYROXINE SODIUM 25 MCG TABLET PO SCH (07:00)
[2022-06-19 08:00] VITALS: BP 150/66
[2022-06-19] MEDS: BENAZEPRIL HCL 10 MG TABLET PO SCH (08:57)
[2022-06-19] MEDS: SIMETHICONE 80 MG TAB.CHEW PO SCH (08:57)
[2022-06-19] MEDS: MULTIVITAMINS,THERAGRAN 1 UDTAB TABLET PO SCH (08:57)
[2022-06-19] MEDS: MEMANTINE HCL 5 MG TABLET PO SCH ×2 (08:57→16:40)
[2022-06-19] MEDS: ASCORBIC ACID 500 MG TABLET PO SCH (08:58)
[2022-06-19] MEDS: OLANZAPINE 2.5 MG TABLET PO SCH ×2 (08:58→16:39)
[2022-06-19] MEDS: ATENOLOL 50 MG TABLET PO SCH (08:59)
[2022-06-19] MEDS: LITHIUM CARBONATE 150 MG CAPSULE PO SCH ×2 (08:59→16:39)
[2022-06-19] MEDS: ENSURE ENLIVE 237 ML LIQUID (VANILLA) PO SCH (09:00)
[2022-06-19] MEDS: FAMOTIDINE (20 MG) 20 MG TABLET PO SCH (09:04)
[2022-06-19] MEDS: FERROUS SULFATE (325 MG) 325 MG/TAB TABLET PO SCH (09:04)
[2022-06-19] MEDS: DOCUSATE SODIUM 100 MG CAPSULE PO SCH (09:04)
[2022-06-19] MEDS: CEFTRIAXONE 1 G VIAL IM SCH (14:24)
[2022-06-19 16:00] VITALS: BP 133/56
--- NOTE | 2022-06-19 19:15 | NUR ---
Pt refused CT .ENCOURAGE PT STILL REFUSED.
[2022-06-19 20:00] VITALS: BP 102/54
--- NOTE | 2022-06-19 21:00 | NUR ---
GPS RN NOTES PATIENT IN THE DINING ROOM WATCHING TV. ALERT AND ORIENTED X1, NO S/SX OF ACUTE DISTRESS NOTED. PATIENT REMAINS LABILE, CONFUSED, NONSENSICAL AT TIMES, VERBALLY ABUSIVE. NEEDS MAXIMUM ASSIST WITH ADLS'S. NO VERBALIZATION OF THOUGHTS AND FEELINGS. SAFETY MEASURES IN PLACE. WILL CONTINUE TO MONITOR Q15MIN ROUNDS FOR SAFETY AND BEHAVIOR. Addendum: 06/20/22 at 0016 beulah PAL RN ADL'S
[2022-06-19] MEDS: OLANZAPINE 5 MG TABLET PO SCH (21:09)
[2022-06-19] MEDS: TEMAZEPAM 7.5 MG CAPSULE PO PRN (23:11)
[2022-06-20] MEDS: LEVOTHYROXINE SODIUM 25 MCG TABLET PO SCH (06:36)
[2022-06-20 07:29] LABS: BASOPHILS % (AUTO) 0.7 % (0.0-2.0); EOSINOPHILS % (AUTO) 3.8 % (0.0-6.0); HEMATOCRIT 31 % (33-45); HEMOGLOBIN 10.2 g/dL (11.5-14.8); LYMPHOCYTES # (AUTO) 1.8 K/uL (0.8-4.8); LYMPHOCYTES % (AUTO) 28.6 % (20.0-44.0); MEAN CORPUSCULAR HGB CONC 33 g/dl (31.0-36.0); MEAN CORPUSCULAR VOLUME 91 fL (82-100); MONOCYTES # (AUTO) 0.9 K/uL (0.1-1.30); MONOCYTES % (AUTO) 14.2 % (2.0-12.0); NEUTROPHILS # (AUTO) 3.4 K/uL (1.8-8.9); NEUTROPHILS % (AUTO) 52.7 % (43.0-81.0); PLATELET COUNT (AUTO) 208 K/uL (150-450); RED BLOOD CELL COUNT(AUTO) 3.47 MIL/uL (4.0-5.2); WHITE BLOOD COUNT (AUTO) 6.5 K/uL (4.3-11.0)
[2022-06-20 07:44] LABS: CARBON DIOXIDE 26 mmol/L (21-32); CHLORIDE 107 mmol/L (98-107); CREATININE 0.8 mg/dL (0.6-1.3); GLUCOSE 90 mg/dL (74-106); MAGNESIUM 2.3 mg/dL (1.8-2.4); PHOSPHORUS 3.9 mg/dL (2.5-4.9); POTASSIUM 3.9 mmol/L (3.5-5.1); SODIUM SERUM 140 mmol/L (136-145); UREA NITROGEN, BLOOD 27 mg/dL (7-18)
[2022-06-20 08:00] VITALS: BP 109/65
[2022-06-20] MEDS: ATENOLOL 50 MG TABLET PO SCH (09:00)
[2022-06-20] MEDS: BENAZEPRIL HCL 10 MG TABLET PO SCH (09:00)
[2022-06-20] MEDS: FERROUS SULFATE (325 MG) 325 MG/TAB TABLET PO SCH (10:09)
[2022-06-20] MEDS: SIMETHICONE 80 MG TAB.CHEW PO SCH (10:09)
[2022-06-20] MEDS: MULTIVITAMINS,THERAGRAN 1 UDTAB TABLET PO SCH (10:09)
[2022-06-20] MEDS: FAMOTIDINE (20 MG) 20 MG TABLET PO SCH (10:09)
[2022-06-20] MEDS: ASCORBIC ACID 500 MG TABLET PO SCH (10:09)
[2022-06-20] MEDS: MEMANTINE HCL 5 MG TABLET PO SCH ×2 (10:09→16:32)
[2022-06-20] MEDS: OLANZAPINE 2.5 MG TABLET PO SCH ×2 (10:09→16:32)
[2022-06-20] MEDS: DOCUSATE SODIUM 100 MG CAPSULE PO SCH (10:09)
[2022-06-20] MEDS: LITHIUM CARBONATE 150 MG CAPSULE PO SCH ×2 (10:09→16:32)
[2022-06-20] MEDS: ENSURE ENLIVE 237 ML LIQUID (VANILLA) PO SCH (10:16)
[2022-06-20] MEDS: CEFTRIAXONE 1 G VIAL IM SCH (15:16)
[2022-06-20 16:00] VITALS: BP 101/50
[2022-06-20] MEDS: LORAZEPAM 0.5 MG TABLET PO PRN (17:36)
--- NOTE | 2022-06-20 17:36 | NUR ---
RN-NOTES PATIENT SCREAMING AND YELLING IN THE DAY ROOM UNCOOPERATIVE,UNABLE TO REDIRECT. ATIVAN 0.5MG P.O GIVEN PRN ORDER. WILL CONT. MONITORING FOR SAFETY AND BEHAVIOR.
--- NOTE | 2022-06-20 18:30 | NUR ---
RN-NOTES PATIENT IN THE HALLWAY UP IN THE JAJA CHAIR,GUARDED,NO ACUTE DISTRESS NOTED.PATIENT A/O X1.NOTED WITH GUARDED,EASILY ANGRY,EPISODE OF YELLING AND SCREAMING AT STAFF USING FOUL LANGUAGES. COMPLIANT WITH MEDICATIONS. NEEDS MAXIMUM ASSIST WITH ADL'S.ALL NEEDS ATTENDED AND ANTICIPATED.WILL CONT. MONITORING FOR SAFETY AND BEHAVIOR. WILL ENDORSE TO INCOMING NURSE.
--- NOTE | 2022-06-20 19:30 | NUR ---
GPS RN NOTE, RECEIVED PATIENT AWAKE AND IN BED, NO S/S OR COMPLAINTS OF PAIN AT THIS TIME. PATIENT IS DISPLAYING NO S/S OF APPARENT DISTRESS AT THIS TIME. PATIENT BREATHING IS UNLABORED WITH EQUAL RISE AND FALL OF THE CHEST. PATIENT IS ALERT AND ORIENTED X 1 ON ROOM AIR WITH A SPO2 99%. PATIENT IS COMPLIANT WITH MEDICATIONS, CONFUSED, ANXIOUS, PARANOID, AND COOPERATIVE. PATIENT DENIES SUICIDAL AND HOMICIDAL IDEATIONS AT THIS TIME. PATIENT ASSISTED WITH TURNING AND REPOSITIONING Q2HR AND PRN FOR COMFORT AND CIRCULATION. PATIENT HAS NO NEEDS AT THIS TIME. PATIENT EDUCATED ON THE USE OF THE CALL COOK. PATIENT BED SIDE RAILS UP X 2 FOR SAFETY. PATIENT BED IS LOCKED, LOW, WITH BED ALARM ON. WILL CONTINUE TO MONITOR THIS PATIENT Q15 MINUTES WITH THE HELP OF STAFF TO MAINTAIN SAFETY.
[2022-06-20 20:00] VITALS: BP 106/49
[2022-06-20] MEDS: OLANZAPINE 5 MG TABLET PO SCH (22:03)
[2022-06-20] MEDS: TEMAZEPAM 7.5 MG CAPSULE PO PRN (23:11)
--- NOTE | 2022-06-20 23:11 | NUR ---
GPS RN NOTE, PATIENT HAS A COMPLAINT OF NOT BEING ABLE TO SLEEP AND IS REQUESTING RESTORIL AT THIS TIME. PATIENT VITAL SIGNS ARE STABLE. GAVE RESTORIL 7.5MG PO HS PRN ORDERED. WILL REASSESS FOR INSOMNIA AND I WILL CONTINUE TO MONITOR THIS PATIENT WITH THE HELP OF STAFF.
[2022-06-21] MEDS: LEVOTHYROXINE SODIUM 25 MCG TABLET PO SCH (07:26)
[2022-06-21 08:00] VITALS: BP 159/65
[2022-06-21] MEDS: ATENOLOL 50 MG TABLET PO SCH (08:51)
[2022-06-21] MEDS: FAMOTIDINE (20 MG) 20 MG TABLET PO SCH (08:51)
[2022-06-21] MEDS: SIMETHICONE 80 MG TAB.CHEW PO SCH (08:51)
[2022-06-21] MEDS: ASCORBIC ACID 500 MG TABLET PO SCH (08:51)
[2022-06-21] MEDS: MULTIVITAMINS,THERAGRAN 1 UDTAB TABLET PO SCH (08:51)
[2022-06-21] MEDS: BENAZEPRIL HCL 10 MG TABLET PO SCH (08:52)
[2022-06-21] MEDS: DOCUSATE SODIUM 100 MG CAPSULE PO SCH (08:52)
[2022-06-21] MEDS: LITHIUM CARBONATE 150 MG CAPSULE PO SCH ×2 (08:52→17:22)
[2022-06-21] MEDS: MEMANTINE HCL 5 MG TABLET PO SCH ×2 (08:53→17:22)
[2022-06-21] MEDS: ENSURE ENLIVE 237 ML LIQUID (VANILLA) PO SCH (08:53)
[2022-06-21] MEDS: FERROUS SULFATE (325 MG) 325 MG/TAB TABLET PO SCH (08:53)
--- NOTE | 2022-06-21 09:00 | NUR ---
NURSE NOTE, RECEIVED PT SLEEPING IN BED, NO S/S OF PAIN AT THIS TIME. NO DISTRESS NOTED. BREATHING IS UNLABORED,EQUAL RISE AND FALL OF THE CHEST. RESPONDS WHEN NAME CALLED OUT. PT CONFUSED, ANXIOUS, PARANOID, BUT COOPERATIVE. PT IS COMPLIANT WITH MEDICATIONS. DENIES SI/HI AT THIS TIME. PATIENT ASSISTED WITH TURNING AND REPOSITIONING Q2HR AND PRN FOR COMFORT AND CIRCULATION. PATIENT HAS NO NEEDS AT THIS TIME. PATIENT EDUCATED ON THE USE OF THE CALL COOK. PATIENT BED SIDE RAILS UP X 2 FOR SAFETY. BED IS LOCKED, IN LOW POSITION, WITH BED ALARM ON. WILL CONTINUE TO MONITOR.
[2022-06-21] MEDS: OLANZAPINE 2.5 MG TABLET PO SCH ×3 (09:03→17:22)
--- NOTE | 2022-06-21 13:35 | NUR ---
NURSE NOTE: PT C/O ABD PAIN AT THIS TIME. MAALOX ADMINISTERED ORDERED. WILL CONT TO MONITOR. Addendum: 06/21/22 at 1411 by TRINIDAD TILLMAN RN ERROR, CHARTED ON WRONG PATIENT.
[2022-06-21 16:00] VITALS: BP 90/50
--- NOTE | 2022-06-21 18:25 | NUR ---
NURSE NOTE: PT AWAKE IN BED. SLEPT OFF AND ON THROUGHOUT DAY. NO RESPIRATORY DISTRESS NOTED. MED COMPLIANT. ATE SOME OF MEALS. PT IN STABLE CONDITION. WILL CONT TO MONITOR.
[2022-06-21 20:00] VITALS: BP 109/56
--- NOTE | 2022-06-21 20:11 | NUR ---
RN NOTES: PATIENT RESTING IN HER ROOM, NO S/SX OF ACUTE DISTRESS NOTED. PATIENT REMAINS ANXIOUS ,EASILY AGITATED, PARNOID LABILE, CONFUSED, HYPERVERBAL, VERBALLY ABUSIVE. NEEDS MAXIMUM ASSIST WITH ADLS'S. NEEDS FREQUENTLY REDIRECTIONS ENCOURAGED PT.TO VERBALIZATION OF THOUGHTS OR FEELINGS.SAFETY MEASURES IN PLACE. WILL CONTINUE TO MONITOR Q15MIN ROUNDS FOR SAFETY AND BEHAVIOR.
[2022-06-21] MEDS: OLANZAPINE 5 MG TABLET PO SCH (21:15)
[2022-06-21] MEDS: LORAZEPAM 0.5 MG TABLET PO PRN (22:19)
[2022-06-22 07:19] LABS: T4 (THYROXINE) 4.8 ug/dL (4.7-13.3); THYROID STIMULATING HORMONE 3.797 uIU/mL (0.358-3.74)
--- NOTE | 2022-06-22 07:40 | NUR ---
RN OPENING NOTES PATIENT AWAKE IN BED RESTING,A/O X 1 CONFUSED AT TIMES, NO S/S OF PAIN NOTED AT THIS TIME. ON ROOM AIR NO DISTRESS OR SHORTNESS OF BREATH NOTED. PATIENT IS COMPLIANT WITH MEDICATION AND COOPERATIVE. PATIENT DENIES SUICIDE IDEATIONS AND HOMICIDAL IDEATIONS AT THIS TIME. PATIENT EDUCATED ON THE USE OF THE CALL COOK. FALL AND SAFETY MEASURES IN PLACE, BED ALARM ON, BED IN LOW LOCK POSITION, CALL LIGHT AND TABLE WITHIN EASY REACH, SIDE RAILS UP X2. WILL CONTINUE TO MONITOR Q15MIN. WITH THE HELP OF STAFF TO MAINTAIN SAFETY.
[2022-06-22 08:00] VITALS: BP 119/70
[2022-06-22] MEDS: ENSURE ENLIVE 237 ML LIQUID (VANILLA) PO SCH (08:50)
[2022-06-22] MEDS: DOCUSATE SODIUM 100 MG CAPSULE PO SCH (08:51)
[2022-06-22] MEDS: ATENOLOL 50 MG TABLET PO SCH (08:51)
[2022-06-22] MEDS: LITHIUM CARBONATE 150 MG CAPSULE PO SCH ×2 (08:51→16:45)
[2022-06-22] MEDS: FAMOTIDINE (20 MG) 20 MG TABLET PO SCH (08:51)
[2022-06-22] MEDS: MEMANTINE HCL 5 MG TABLET PO SCH ×2 (08:51→16:45)
[2022-06-22] MEDS: SIMETHICONE 80 MG TAB.CHEW PO SCH (08:51)
[2022-06-22] MEDS: FERROUS SULFATE (325 MG) 325 MG/TAB TABLET PO SCH (08:51)
[2022-06-22] MEDS: LEVOTHYROXINE SODIUM 25 MCG TABLET PO SCH (08:52)
[2022-06-22] MEDS: OLANZAPINE 2.5 MG TABLET PO SCH ×3 (08:52→16:45)
[2022-06-22] MEDS: MULTIVITAMINS,THERAGRAN 1 UDTAB TABLET PO SCH (08:52)
[2022-06-22] MEDS: ASCORBIC ACID 500 MG TABLET PO SCH (08:52)
[2022-06-22] MEDS: BENAZEPRIL HCL 10 MG TABLET PO SCH (08:52)
[2022-06-22 16:00] VITALS: BP 103/56
[2022-06-22] MEDS: LORAZEPAM 0.5 MG TABLET PO PRN (19:25)
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
--- NOTE | 2022-06-22 20:21 | NUR ---
RN NOTES: PATIENT SITTING UP IN JAJA CHAIR,AWAKE ALERT X1 NO S/SX OF ACUTE DISTRESS NOTED. PATIENT REMAINS ANXIOUS ,EASILY AGITATED, PARNOID LABILE, CONFUSED, HYPERVERBAL, VERBALLY ABUSIVE. NEEDS MAXIMUM ASSIST WITH ADLS'S.REFUSED TO STAYING IN BED ,HIGH FALL RISKS ,ENCOURAGED PT.TO VERBALIZATION OF THOUGHTS OR FEELINGS.SAFETY MEASURES IN PLACE. WILL CONTINUE TO MONITOR Q15MIN ROUNDS FOR SAFETY AND BEHAVIOR.
[2022-06-22 20:50] VITALS: BP_SYST 101; BP_SYST 105; BP_DIAS 45; BP_DIAS 63
[2022-06-22] MEDS: OLANZAPINE 5 MG TABLET PO SCH (21:07)
[2022-06-23] MEDS: LEVOTHYROXINE SODIUM 25 MCG TABLET PO SCH (07:47)
[2022-06-23 08:00] VITALS: BP 100/60
[2022-06-23] MEDS: ASCORBIC ACID 500 MG TABLET PO SCH (08:27)
[2022-06-23] MEDS: FERROUS SULFATE (325 MG) 325 MG/TAB TABLET PO SCH (08:27)
[2022-06-23] MEDS: OLANZAPINE 2.5 MG TABLET PO SCH ×3 (08:27→17:29)
[2022-06-23] MEDS: FAMOTIDINE (20 MG) 20 MG TABLET PO SCH (08:27)
[2022-06-23] MEDS: ATENOLOL 50 MG TABLET PO SCH (08:27)
[2022-06-23] MEDS: LITHIUM CARBONATE 150 MG CAPSULE PO SCH ×2 (08:27→17:29)
[2022-06-23] MEDS: SIMETHICONE 80 MG TAB.CHEW PO SCH (08:27)
[2022-06-23] MEDS: DOCUSATE SODIUM 100 MG CAPSULE PO SCH (08:27)
[2022-06-23] MEDS: MEMANTINE HCL 5 MG TABLET PO SCH ×2 (08:27→17:29)
[2022-06-23] MEDS: BENAZEPRIL HCL 10 MG TABLET PO SCH (08:28)
[2022-06-23] MEDS: ENSURE ENLIVE 237 ML LIQUID (VANILLA) PO SCH (08:28)
[2022-06-23] MEDS: MULTIVITAMINS,THERAGRAN 1 UDTAB TABLET PO SCH (08:28)
[2022-06-23] MEDS: LORAZEPAM 0.5 MG TABLET PO PRN ×2 (10:14→22:55)
--- NOTE | 2022-06-23 13:51 | NUR ---
RN-CO: Patient is yelling and screaming for no reason. verbally abusive to staff. Looking for her daughter who came in but left. Dr Jeetr was notified to get an order.
[2022-06-23 16:00] VITALS: BP 102/68
[2022-06-23 20:29] VITALS: BP 128/76
[2022-06-23] MEDS: OLANZAPINE 5 MG TABLET PO SCH (21:21)
--- NOTE | 2022-06-23 21:53 | NUR ---
RN Note: Patient uncooperative,yelling,screaming,sarcastic and paranoid upon approach.Refused skin assessment offered 3x.
[2022-06-24] MEDS: SIMETHICONE 80 MG TAB.CHEW PO SCH ×2 (07:47→08:12)
[2022-06-24] MEDS: LEVOTHYROXINE SODIUM 25 MCG TABLET PO SCH (07:48)
[2022-06-24 08:00] VITALS: BP 139/90
[2022-06-24] MEDS: FAMOTIDINE (20 MG) 20 MG TABLET PO SCH (08:10)
[2022-06-24] MEDS: MEMANTINE HCL 5 MG TABLET PO SCH ×2 (08:10→17:31)
[2022-06-24] MEDS: OLANZAPINE 2.5 MG TABLET PO SCH ×3 (08:11→17:31)
[2022-06-24] MEDS: MULTIVITAMINS,THERAGRAN 1 UDTAB TABLET PO SCH (08:11)
[2022-06-24] MEDS: ATENOLOL 50 MG TABLET PO SCH (08:12)
[2022-06-24] MEDS: ASCORBIC ACID 500 MG TABLET PO SCH (08:12)
[2022-06-24] MEDS: BENAZEPRIL HCL 10 MG TABLET PO SCH (08:12)
[2022-06-24] MEDS: LITHIUM CARBONATE 150 MG CAPSULE PO SCH ×2 (08:13→17:31)
[2022-06-24] MEDS: FERROUS SULFATE (325 MG) 325 MG/TAB TABLET PO SCH (08:13)
[2022-06-24] MEDS: DOCUSATE SODIUM 100 MG CAPSULE PO SCH (08:13)
[2022-06-24] MEDS: ENSURE ENLIVE 237 ML LIQUID (VANILLA) PO SCH (08:14)
[2022-06-24] MEDS: OLANZAPINE 5 MG TABLET PO SCH (14:07)
--- NOTE | 2022-06-24 15:23 | NUR ---
PCP Contact: SCOTT received call from RNIzzy from PCP: Vinny Gray's office [phone] askign about DC Plan. SCOTT provided DC plan is to return to [facility]. Izzy asked to be notified of DC DATE. SCOTT notified other SCOTT Medina.
--- NOTE | 2022-06-24 15:51 | NUR ---
SNF Referral: SCOTT sent clinicals to Courtney from [facility] ([phone]) for placement option. SCOTT sent [facility] & [facility], progress notes, and medication list.
[2022-06-24 16:00] VITALS: BP 110/52
--- NOTE | 2022-06-24 18:56 | NUR ---
PT COMPLIANT WITH CARE, WAS UP AND IN JAJA CHAIR MOST OF DAY, COMPLIANT WITH PO MEDICATINS AND ABLE TO MAKE NEEDS KNOWN, ALL SAFETY MEASURES IN PLACE, WHEELS LOCKED ON CHAIR AND TRAY TABLE LOCKED IN POSITION FOR SAFETY, RELEASED FOR COMFORT STRETCHING AND POSITION CHANGES Q 2 HOURS OR MORE A PT IS ABLE TO TURN AND ADJUST SELF IN CHAIR, ALL NEEDS CARED FOR IN A TIMELY MANNER.
[2022-06-24 20:43] VITALS: BP 117/59
[2022-06-24] MEDS: TEMAZEPAM 7.5 MG CAPSULE PO PRN (21:39)
--- NOTE | 2022-06-24 21:40 | NUR ---
Pt c/o insomnia. Least restrictive measures ineffective. Restoril 7.5 mg po prn given as ordered. Will continue to monitor.
--- NOTE | 2022-06-24 22:58 | NUR ---
Post 1 hr Restoril effective. Pt asleep easy to arouse. Frequent visual check done for safety. Will continue to monitor.
[2022-06-25] MEDS: LEVOTHYROXINE SODIUM 25 MCG TABLET PO SCH (07:26)
[2022-06-25 08:00] VITALS: BP 109/59
[2022-06-25] MEDS: SIMETHICONE 80 MG TAB.CHEW PO SCH (08:32)
[2022-06-25] MEDS: DOCUSATE SODIUM 100 MG CAPSULE PO SCH (08:32)
[2022-06-25] MEDS: OLANZAPINE 2.5 MG TABLET PO SCH ×3 (08:32→16:06)
[2022-06-25] MEDS: LITHIUM CARBONATE 150 MG CAPSULE PO SCH ×2 (08:33→16:06)
[2022-06-25] MEDS: FERROUS SULFATE (325 MG) 325 MG/TAB TABLET PO SCH (08:33)
[2022-06-25] MEDS: MULTIVITAMINS,THERAGRAN 1 UDTAB TABLET PO SCH (08:40)
[2022-06-25] MEDS: ASCORBIC ACID 500 MG TABLET PO SCH (08:41)
[2022-06-25] MEDS: MEMANTINE HCL 5 MG TABLET PO SCH ×2 (08:41→16:06)
[2022-06-25] MEDS: FAMOTIDINE (20 MG) 20 MG TABLET PO SCH (08:41)
[2022-06-25] MEDS: BENAZEPRIL HCL 10 MG TABLET PO SCH (08:42)
[2022-06-25] MEDS: ATENOLOL 50 MG TABLET PO SCH (08:42)
[2022-06-25] MEDS: ENSURE ENLIVE 237 ML LIQUID (VANILLA) PO SCH (08:50)
[2022-06-25] MEDS: LORAZEPAM 0.5 MG TABLET PO PRN ×2 (11:11→20:17)
--- NOTE | 2022-06-25 11:16 | NUR ---
Court Notification: SW contacted pt's daughter Radha ([phone]) and left a voicemail.
--- NOTE | 2022-06-25 11:21 | NUR ---
Court Hearing: Patient's court hearing for 30 day was today and it was upheld for GD.
--- NOTE | 2022-06-25 15:32 | NUR ---
Family Contact: SW called her daughter, Radha Anand at [phone] and left a voicemail regarding if she is acceptable of pt going to [facility][Note 3] before going back to [facility].
[2022-06-25 16:00] VITALS: BP 123/74
--- NOTE | 2022-06-25 19:15 | NUR ---
GPS RN NOTES PATIENT IN THE DINING ROOM WATCHING TV. ALERT AND ORIENTED X1, NO S/SX OF ACUTE DISTRESS NOTED. PATIENT REMAINS LABILE, CONFUSED, NONSENSICAL AT TIMES, DISORGANIZED. NEEDS MAXIMUM ASSIST WITH ADLS'S. NO VERBALIZATION OF THOUGHTS OR FEELINGS.SAFETY MEASURES IN PLACE. WILL CONTINUE TO MONITOR Q15MIN ROUNDS FOR SAFETY AND BEHAVIOR.
[2022-06-25 20:02] VITALS: BP 111/63
[2022-06-25] MEDS: OLANZAPINE 5 MG TABLET PO SCH (21:12)
[2022-06-25] MEDS: TEMAZEPAM 7.5 MG CAPSULE PO PRN (21:30)
[2022-06-26] MEDS: LEVOTHYROXINE SODIUM 25 MCG TABLET PO SCH (06:31)
[2022-06-26 08:00] VITALS: BP 160/87
[2022-06-26] MEDS: OLANZAPINE 2.5 MG TABLET PO SCH ×3 (08:01→16:03)
[2022-06-26] MEDS: DOCUSATE SODIUM 100 MG CAPSULE PO SCH (08:01)
[2022-06-26] MEDS: ASCORBIC ACID 500 MG TABLET PO SCH (08:01)
[2022-06-26] MEDS: MULTIVITAMINS,THERAGRAN 1 UDTAB TABLET PO SCH (08:02)
[2022-06-26] MEDS: SIMETHICONE 80 MG TAB.CHEW PO SCH (08:02)
[2022-06-26] MEDS: BENAZEPRIL HCL 10 MG TABLET PO SCH (08:02)
[2022-06-26] MEDS: FERROUS SULFATE (325 MG) 325 MG/TAB TABLET PO SCH (08:03)
[2022-06-26] MEDS: FAMOTIDINE (20 MG) 20 MG TABLET PO SCH (08:03)
[2022-06-26] MEDS: LITHIUM CARBONATE 150 MG CAPSULE PO SCH ×2 (08:03→16:03)
[2022-06-26] MEDS: ENSURE ENLIVE 237 ML LIQUID (VANILLA) PO SCH (08:15)
[2022-06-26] MEDS: MEMANTINE HCL 5 MG TABLET PO SCH ×2 (08:26→16:03)
[2022-06-26 08:27] VITALS: BP 160/87
[2022-06-26] MEDS: ATENOLOL 50 MG TABLET PO SCH (08:27)
[2022-06-26] MEDS: LORAZEPAM 0.5 MG TABLET PO PRN ×2 (09:29→15:30)
--- NOTE | 2022-06-26 11:14 | NUR ---
Family Contact: SW called her daughter, Radha Anand at [phone] and discussed placement. She was agreeable of pt going to [facility].
--- NOTE | 2022-06-26 11:14 | NUR ---
SW Discharge Note: Patient will be discharged [facility] a [facility] facility to [facility] [address] [place] [address]; ([phone]). Please arrange ambulance transportation at 3PM. Executive Chairman Of The Board spoke with Monika, Pharmacy Benefit Manager at [facility]; ([phone]), who stated patient will be accepted at facility today. Per DPOA/Daughter, Radha Anand [phone] stated that she would like the pt to go [facility]. Patient is alert and oriented x2 and is not able to plan for self-care at this time, but is willing to accept care provided for care at the facility. Patient denies any suicidal or homicidal ideations. Patient is aware and agreeable with discharge plans. Patient will continue to follow-up with her (Psychiatrist ) Dr. Lainez [address] [facility] [address], [place] [address]; ([phone]) and Environment Coordinator Dr. Allan [address] [facility] [address], [place] [address]; ([phone]). Patient presents with euthymic mood and congruent affect.
--- NOTE | 2022-06-26 16:20 | NUR ---
PLY CUTTER NOTE PATIENT DISCHARGE TO [facility] IN STABLE CONDITION NO SOB NOT ACUTE DISTRESS NOTED,SHE NOT ABLE TO SIGN DISCHARGE PAPERS AND BELONGINGS,2 RN SIGNED PAPERS,SHE LEFT FACILITY WITH ALL HER BELONGINGS WITH 2 EMT [facility]M [facility] BY AMBULANCE,LEFT MESSAGE TO HER DAUGHTER LILIANE. Addendum: 06/26/22 at 1710 by GARRETT WOLF RN PATIENT DENIES SUICIDAL IDEATION,DENIES HOMICIDAL IDEATION,DENIES AUDITORY,VISUAL HALLUCINATION UPON DISCHARGE.
== END 2022-06-26 16:30 | DRG 885 ==
LOC: ER 17:52 → GPS 23:59
PROVIDERS: ADMIT Psychiatry & Neurology Psychosomatic Medicine; ATTEND Nurse Practitioner Acute Care
DX: F25.0 Schizoaffective disorder, bipolar type (principal); N39.0 Urinary tract infection, site not specified; F02.81 Dementia in other diseases classified elsewhere, unspecified severity, with behavioral disturbance; G93.40 Encephalopathy, unspecified; F29 Unspecified psychosis not due to a substance or known physiological condition; G30.9 Alzheimer's disease, unspecified; F41.9 Anxiety disorder, unspecified; E88.09 Other disorders of plasma-protein metabolism, not elsewhere classified; F60.3 Borderline personality disorder; K21.9 Gastro-esophageal reflux disease without esophagitis; I10 Essential (primary) hypertension; Z73.6 Limitation of activities due to disability; B96.89 Other specified bacterial agents as the cause of diseases classified elsewhere; E86.0 Dehydration; K44.9 Diaphragmatic hernia without obstruction or gangrene; K57.90 Diverticulosis of intestine, part unspecified, without perforation or abscess without bleeding; Z66 Do not resuscitate; Z87.440 Personal history of urinary (tract) infections
CPT/HCPCS: 36415; 80048-TC; 80053-TC; 80061-TC; 80076-TC; 81001; 82565-TC; 82962-TC; 83735-TC; 84100-TC; 84436-TC; 84443-TC; 85025-TC; 87081-TC; 87086-TC; 97116-TC; 97530-TC; C9803; G0480; J0696

== ENCOUNTER 2022-10-04 15:37 | Inpatient (IN) | payer MEDICARE ==
[~2022-10-04] VITALS: Ht 157.5 cm; Wt 53.1 kg
[~2022-10-04 15:37] MED LIST: ASCO500T10 PO; ATEN50TA PO; BENA10TA74 PO; CEPH500C2 PO; DOCU100C36 PO; FAMO20TA8 PO; FERR325T23 PO; GABA-532 PO; LEVO25TA7 PO; LITH150C PO; LORA-259 PO; MEMA10TA PO; MULT-754 PO; QUET100T PO; QUET25TA PO; SIME80TA15 PO
--- NOTE | 2022-10-04 15:40 | NUR ---
BIB STAFF FOR MEDICAL CLEARANCE FOR POSSIBLE GPS ADMISSION VERBALLY ABUSIVE TO STAFF PER CAREGIVER. AMBULATORY, PLACED ON BED, COOPERATIVE- CALM. WILL CONTINUE TO MONITOR.
--- NOTE | 2022-10-04 15:55 | NUR ---
FURNITURE BUILDER. AT BEDSIDE
[2022-10-04] MEDS ORDERED: NITR100C15 PO (16:12)
[2022-10-04] MEDS ORDERED: OLAN2.5T3 PO (16:12)
[2022-10-04] MEDS ORDERED: OLAN5TAB3 PO (16:12)
[2022-10-04 16:59] LABS: CALCIUM, SERUM 8.4 mg/dL (8.5-10.1); CARBON DIOXIDE 24 mmol/L (21-32); CHLORIDE 108 mmol/L (98-107); CREATININE 0.9 mg/dL (0.6-1.3); GLUCOSE 123 mg/dL (74-106); SODIUM SERUM 140 mmol/L (136-145); UREA NITROGEN, BLOOD 12 mg/dL (7-18)
[2022-10-04 17:00] LABS: BASOPHILS % (AUTO) 0.3 % (0.0-2.0); EOSINOPHILS % (AUTO) 3.8 % (0.0-6.0); HEMATOCRIT 33 % (33-45); HEMOGLOBIN 10.6 g/dL (11.5-14.8); LYMPHOCYTES % (AUTO) 19.1 % (20.0-44.0); MEAN CORPUSCULAR HGB CONC 32 g/dl (31.0-36.0); MEAN CORPUSCULAR VOLUME 90 fL (82-100); MONOCYTES % (AUTO) 9.3 % (2.0-12.0); NEUTROPHILS # (AUTO) 7.1 K/uL (1.8-8.9); NEUTROPHILS % (AUTO) 67.5 % (43.0-81.0); PLATELET COUNT (AUTO) 290 K/uL (150-450); RED BLOOD CELL COUNT(AUTO) 3.66 MIL/uL (4.0-5.2); WHITE BLOOD COUNT (AUTO) 10.5 K/uL (4.3-11.0)
[2022-10-04 17:09] LABS: ALANINE AMINOTRANSFERASE 56 U/L (12-78); ALBUMIN 3.1 g/dL (3.4-5.0); ALKALINE PHOSPHATASE 148 U/L (46-116); ASPARTATE AMINOTRANSFERASE 25 U/L (15-37); BILIRUBIN,DIRECT 0.1 mg/dL (0.0-0.2); BILIRUBIN,TOTAL 0.2 mg/dL (0.2-1.0); TOTAL PROTEIN, SERUM 6.1 g/dL (6.4-8.2)
--- NOTE | 2022-10-04 17:09 | NUR ---
SWAB FOR COVID19 SENT TO LAB
[2022-10-04 17:13] LABS: ACETAMINOPHEN < 10 ug/ml (10-30); ALCOHOL, BLOOD < 3 mg/dL (0-0)
[2022-10-04 19:15] LABS: BILIRUBIN,URINE NEGATIVE (NEGATIVE); COLOR,URINE YELLOW (YELLOW); LEUKOCYTE ESTERASE ,URINE 3+ (NEGATIVE); NITRITE, URINE NEGATIVE (NEGATIVE); PH,URINE 6.5 (5.0-8.0); PROTEIN,URINE NEGATIVE (NEGATIVE); UGLUCOSE NEGATIVE (NEGATIVE); UROBILINOGEN,URINE 0.2 EU/dL (0.2)
--- NOTE | 2022-10-04 19:41 | NUR ---
MOVE SHEET SUBMITTED.
[2022-10-04 19:55] LABS: BACTERIA,URINE 3+ /HPF (None Seen); WBC,URINE 51-80 /HPF (0-3)
--- NOTE | 2022-10-04 20:04 | NUR ---
[facility] SWAB COLLECTED AND SENT TO LAB
--- NOTE | 2022-10-04 20:10 | NUR ---
CALLED MACHINE TANK OPERATOR ODALIS BOSS 1 HOUR
--- NOTE | 2022-10-04 20:19 | NUR ---
CHARTER DRIVER AT PT'S BEDSIDE
[2022-10-04] MEDS ORDERED: CEPHALEXIN MONOHYDRATE 500 MG CAPSULE PO SCH (20:30)
[2022-10-04] MEDS ORDERED: CEFTRIAXONE 1GM BAG (ER ONLY) 50 ML IV ONE (20:30)
--- NOTE | 2022-10-04 22:25 | NUR ---
ODALIS - CRISIS CUSTOMER SALES CONSULTANT- AT BEDSIDE FOR EVAL.
--- NOTE | 2022-10-04 22:58 | NUR ---
Navin arauz in [facility] - 10/04/22 at 2308 by ANGTAGORDON [id number]
[2022-10-04] MEDS ORDERED: PIPERACILLIN /TAZOBACTAM 3.375 G in IV D5W 50 ML IV ONE (23:00)
[2022-10-04] MEDS ORDERED: OLANZAPINE 5 MG TABLET PO ONE (23:00)
[2022-10-04] MEDS ORDERED: PIPERACILLIN /TAZOBACTAM 3.375 G VIAL IV ONE (23:19)
--- NOTE | 2022-10-04 23:59 | NUR ---
ROOM 327-1
--- NOTE | 2022-10-05 00:25 | NUR ---
REPORT GIVEN TO SCARLET CONNOLLY
--- NOTE | 2022-10-05 00:50 | NUR ---
DR. MONSIVAIS ON PHONE CALL WITH ARIAN SALCEDO
--- NOTE | 2022-10-05 00:57 | NUR ---
PATIENT BEING TRANSFERRRED TO 3W IN STABLE CONDITION
[2022-10-05 01:00] VITALS: BP 149/69
--- NOTE | 2022-10-05 01:00 | NUR ---
RN RECEIVING PATIENT FROM ER NOTE PATIENT ARRIVED TO UNIT VIA GURNEY FROM ER. PATIENT IS STABLE BUT HIGHLY AGITATED AND CONFUSED. NO S/S OF DISTRESS, BREATHING WITHOUT DIFFICULTY ON ROOM AIR. A/OX1 (NAME). RFA #[id number] INTACT AND PATENT. VS WNL. PATIENT WAS ORIENTED TO THE UNIT. PATIENT GIVEN CALL COOK, AND INSTRUCTED ON ITS USE. PATIENT'S BELONGINGS ACCOUNTED FOR, LOGGED INTO SHEET, AND PLACED IN CHART. PATIENT IS UNABLE TO SIGN BELONGINGS LIST. SAFETY MEASURES IN PLACE: BED LOCKED IN PLACE AND AT LOWEST POSITION, RAILS UP X2, CALL COOK WITHIN REACH. WILL CONTINUE TO MONITOR PATIENT.
[2022-10-05] MEDS ORDERED: ACETAMINOPHEN 325 MG TABLET PO PRN (01:30)
[2022-10-05] MEDS ORDERED: IV NS 0.9% 1,000 ML IV PRN (01:30)
[2022-10-05] MEDS ORDERED: ONDANSETRON HCL/PF 4 MG/2 ML VIAL IVP PRN (01:30)
[2022-10-05] MEDS ORDERED: MEROPENEM 500 MG in IV NS 0.9% 50 ML IV SCH ×2 (02:00→10:00)
[2022-10-05] MEDS ORDERED: MEROPENEM 500 MG VIAL IV ONE (02:01)
[2022-10-05] MEDS ORDERED: QUETIAPINE FUMARATE 25 MG TABLET PO ONE (02:30)
--- NOTE | 2022-10-05 03:51 | NUR ---
RN NOTE @0300: CALLED [facility] [phone] AND SPOKE W/ CLAWENCESLAODETTE REGARDING PATIENT'S CURRENT VAX STATUS: COVID, PNA, FLU. CONTACT REFERRED ME TO NURSEALE [phone] @2534: NURSE ALE REACHED OUT TO UNIT AND STATED SHE WILL FAX THE DOCUMENTATION OF AFOREMENTIONED VAXES LATER THIS MORNING TO UNIT. PATIENT IS OTHERWISE STABLE; WILL CONTINUE TO MONITOR PATIENT.
--- NOTE | 2022-10-05 06:56 | NUR ---
RN NOTE PATIENT ASLEEP IN BED. A/OX1 (NAME). NO S/S OF DISTRESS, BREATHING WITHOUT DIFFICULTY ON ROOM AIR. RFA #18 INTACT AND PATENT W/ NS 75ML/HR. SAFETY MEASURES IN PLACE: BED LOCKED AND AT LOWEST POSITION, RAILS UP X2, CALL COOK WITHIN REACH. WILL ENDORSE TO NEXT SHIFT FOR NELLY.
[2022-10-05 07:00] VITALS: BP 135/43
--- NOTE | 2022-10-05 07:30 | NUR ---
RN Opening Note Patient AOx1, not able to express her concerns. Patient with no signs of respiratory distress or discomfort, IV with no signs of infiltration. All safety precautions taken, call light and table within reach bed locked and at lowest position. Will continue to monitor throughout shift and provide care as needed.
[2022-10-05] MEDS ORDERED: MEROPENEM 1 G in IV NS 0.9% 100 ML IV SCH (14:00)
--- NOTE | 2022-10-05 18:08 | NUR ---
RN Closing Note Pt AOx1, not able to express her own concerns. Patients daughter made aware of plan of care, for pt to be transferred to psyche unit and agrees. Will work on exit care and transfer pt. . Patient was safe throughout shift, all medications administered as ordered by physician. All safety precautions taken, call light ans table within reach, bed at lowest position. Will endorse to night nurse for continuity of care.
[2022-10-05] MEDS ORDERED: CEPH500C2 PO (20:26)
== END 2022-10-05 18:38 | DRG 690 ==
LOC: ER 15:39 → MED 10-05 00:09
DX: N39.0 Urinary tract infection, site not specified (principal); F02.811 Dementia in other diseases classified elsewhere, unspecified severity, with agitation; F02.84 Dementia in other diseases classified elsewhere, unspecified severity, with anxiety; G30.9 Alzheimer's disease, unspecified; I10 Essential (primary) hypertension; K21.9 Gastro-esophageal reflux disease without esophagitis; F32.9 Major depressive disorder, single episode, unspecified; Z91.14 Patient's other noncompliance with medication regimen; F39 Unspecified mood [affective] disorder; F41.0 Panic disorder [episodic paroxysmal anxiety]; Z20.822 Contact with and (suspected) exposure to COVID-19
CPT/HCPCS: 36415; 80048-TC; 80076-TC; 81001; 82962-TC; 83605-TC; 85025-TC; 87040-TC; 87081-TC; 87086-TC; C9803; G0378; G0480; J2185; J2543; J7030; J7060

== ENCOUNTER 2022-10-05 18:47 | Inpatient (IN) | payer MEDICARE ==
[~2022-10-05] VITALS: Ht 157.5 cm; Wt 53.1 kg
[~2022-10-05 18:47] MED LIST changes: -CEPH500C2 PO; -LORA-259 PO; +NITR100C15 PO; +OLAN2.5T3 PO; +OLAN5TAB3 PO; -QUET100T PO; -QUET25TA PO
[2022-10-05] MEDS ORDERED: CEPH500C2 PO (20:26)
[2022-10-05] MEDS ORDERED: ACETAMINOPHEN 325 MG TABLET PO PRN (20:30)
[2022-10-05] MEDS ORDERED: MAG HYDROX/AL HYDROX/SIMETH 30 ML UDC PO PRN (20:30)
[2022-10-05] MEDS ORDERED: MAGNESIUM HYDROXIDE 30 ML UDC PO PRN (20:30)
[2022-10-05 20:44] VITALS: BP 134/78
--- NOTE | 2022-10-05 20:50 | NUR ---
GPS RN NOTE, PATIENT NEEDS DNR ORDER AND MEDICATION RECONCILIATION. PAGED [facility] AND INFORMED MADELINE DON DNP OF MY FINDINGS. MADELINE DON DNP GAVE ORDER FOR DNR, SAID SHE WILL DO MEDICATION RECONCILIATION SOON POSSIBLE, AND THEN WANTED URINARY CULTURE RESULTS FROM [facility] . CALLED [facility] AND SPOKE WITH NURSE AGUILERA AND ASKED HER TO FAX URINARY CULTURE RESULTS FROM [facility]. NURSE AGUILERA SAID SHE WILL SEND THEM IN THE MORNING. ALL ORDERS NOTED AND CARRIED OUT. WILL ENDORSE TO A.M. SHIFT NURSE TO FOLLOW UP NURSE AGUILERA. WILL CONTINUE TO MONITOR THIS PATIENT WITH THE HELP OF STAFF.
[2022-10-05 22:20] VITALS: BP 132/76
[2022-10-05] MEDS: GABAPENTIN 100 MG CAPSULE PO SCH (22:34)
[2022-10-05] MEDS: CEPHALEXIN MONOHYDRATE 500 MG CAPSULE PO SCH (22:34)
[2022-10-05] MEDS: MEMANTINE HCL 5 MG TABLET PO SCH (22:34)
--- NOTE | 2022-10-05 22:55 | NUR ---
RN NOTES : ADMISSION NOTES: ADMITTED THIS 81Y/O FEMALE PATIENT ADMIT FROM [facility] , INITIALLY FROM [facility]. ADMITTED TO 5150 HOLD PER HOLD GD .DUE TO HOLD SUDDEN CONFUSED AND AGITATION, UPON FACE TO FACE ASSESSMENT PATIENT IS A&O 1 CONFUSED,DEPRESSED ,EASILY AGITATED ,DISORGNIZED, DISHELVED, UNCOOPERTIVE,SCREAMING YELLING ,POOR DECISION MAKING,DENIES SI /HI AT THIS TIME, PT. IS POOR HISTORIAN, POOR INSIGHT ,POOR JUDGEMENT , BOTH MD AWARE AND NOTIFIED OF THE ADMISSION, BELONGINGS CONTRABAND WERE DONE , PT. REFUSED SIGNS ADMISSION CONSENT PAPER DUE TO ANXIOUS, CONFUSED, PT. RIGHTS DISCUSS BY GROUND TRANSPORTATION OPERATOR , PROVIDE THE PT. WITH HANDBOOK, AND MEDICATIONS GUIDE, ENVIRONMENTAL SAFETY CHECK DONE, ENCOURAGED PT. VERBALIZED ANY FEELING CONCERN TO STAFF, ORIENT TO UNIT POLICY, NO ACUTE DISTRESS NOTED,VITAL SIGNS WNL ,DENIES ANY PAIN AT THIS TIME,WILL CONTINUE TO MONITOR FOR Q15 SAFETY AND BEHAVIOR.
[2022-10-06] MEDS: LORAZEPAM 0.5 MG TABLET PO PRN ×3 (00:15→20:30)
--- NOTE | 2022-10-06 00:17 | NUR ---
RN NOTES: ANXIETY PT. NOTED VERY ANXIOUS YELLING SCREAMING , PARANOID NONREDIRECTABLE , ATIVAN 0.5 MG PO GIVEN , WILL CONTINUE TO MONITOR.
[2022-10-06] MEDS ORDERED: Z GUARD REMEDY 4 OZ OINT TP PRN (06:30)
[2022-10-06] MEDS: LEVOTHYROXINE SODIUM 25 MCG TABLET PO SCH (06:51)
[2022-10-06] MEDS: FAMOTIDINE (20 MG) 20 MG TABLET PO SCH (06:51)
--- NOTE | 2022-10-06 07:21 | NUR ---
RN NOTES: CALLED PT'S DAUGHTER LILIANE RUBIO REGARDING ABOUT ADMITTED IN GPS # [phone] .
[2022-10-06] MEDS: ENSURE ENLIVE CHOC 237 ML CAN PO SCH ×2 (07:56→17:16)
[2022-10-06 08:00] VITALS: BP 148/69
[2022-10-06] MEDS: FERROUS SULFATE (325 MG) 325 MG/TAB TABLET PO SCH (08:23)
[2022-10-06] MEDS: MULTIVITAMINS,THERAGRAN 1 UDTAB TABLET PO SCH (08:23)
[2022-10-06] MEDS: SIMETHICONE 80 MG TAB.CHEW PO SCH (08:24)
[2022-10-06] MEDS: BENAZEPRIL HCL 10 MG TABLET PO SCH (08:24)
[2022-10-06] MEDS: DOCUSATE SODIUM 100 MG CAPSULE PO SCH (08:24)
[2022-10-06] MEDS: ATENOLOL 50 MG TABLET PO SCH (08:24)
[2022-10-06] MEDS: GABAPENTIN 100 MG CAPSULE PO SCH ×3 (08:25→17:03)
[2022-10-06] MEDS: MEMANTINE HCL 5 MG TABLET PO SCH ×2 (08:25→17:00)
[2022-10-06] MEDS: CEPHALEXIN MONOHYDRATE 500 MG CAPSULE PO SCH ×2 (08:26→17:01)
[2022-10-06] MEDS: Z GUARD REMEDY 4 OZ OINT TP SCH (08:31)
[2022-10-06] MEDS: ASCORBIC ACID 500 MG TABLET PO SCH (08:41)
[2022-10-06] MEDS: LITHIUM CARBONATE 150 MG CAPSULE PO SCH ×2 (12:18→17:00)
--- NOTE | 2022-10-06 13:40 | NUR ---
RN NOTES PATIENT ANXIOUS, AGITATED AND SCREAMING ON AND OFF WHILE SITTING IN THE JAJA-CHAIR AT THE ACTIVITY AREA. PRN ATIVAN 0.5MG TAB GIVEN AT 1338. WILL CONTINUE TO MONITOR PT.
--- NOTE | 2022-10-06 14:07 | NUR ---
RN NOTE- PT W UTI AND URINARY URGENCY AND PAIN. REQUESTED PYRIDIUM SCRIPT FROM. ANGE FORD. ORDERED PYRIDIUM 100MG TID PRN.
[2022-10-06 16:00] VITALS: BP 144/75
[2022-10-06] MEDS: OLANZAPINE 5 MG TABLET PO SCH (17:00)
--- NOTE | 2022-10-06 19:20 | NUR ---
GPS RN OPENING NOTE RECEIVED PT SITTING IN ALIYAH CHAIR. PT A/O X2-3, ABLE TO MAKE NEEDS KNOWN. PT IS A LITTLE RESTLESS, BUT COOPERATIVE, AND MED COMPLAINT. PT IS TAKEN TO BATHROOM. PT HAD SMALL BM, NO C/O PAIN OR BURNING DURING URINATION. SAFETY MEASURES IMPLEMENTED. WILL CONTINUE TO MONITOR PT FOR SAFETY.
--- NOTE | 2022-10-06 19:39 | NUR ---
GPS RN NOTE MATIAS DON CALLED, AND RELAYED C&S RESULTS. PT IS AFEBRILE, VS WNL, NO C/O PAIN DURING URINATION. PT ON KEFLEX 500 MG PO BID, WBC: 10.5, PT ON S/P ATB IV THERAPY COMPLETED IN MED-SURG. MATIAS DON MADE AWARE WITH NO NEW ORDERS AT THIS TIME.
--- NOTE | 2022-10-06 20:30 | NUR ---
GPS RN NOTE PT IS RESTLESS, AND ANXIOUS. ATIVAN O.5 MG PRN IS ADMINISTERED TO PT . PT ALSO C/O DISCOMFORT, MODERATE PAIN TO BLE. TYLENOL 650 MG PRN GIVEN TO PT.
[2022-10-06 20:59] VITALS: BP 154/90
[2022-10-06] MEDS ORDERED: BLOOD SUGAR DIAGNOSTIC 1 EACH STRIP IN ONE (21:00)
[2022-10-06] MEDS: TEMAZEPAM 7.5 MG CAPSULE PO PRN (22:26)
--- NOTE | 2022-10-06 22:26 | NUR ---
GPS RN NOTE PT IS UNABLE TO SLEEP. RESTORIL 7.5 MG PRN IS ADMINISTERED TO PT FOR INSOMNIA.
[2022-10-07 06:33] LABS: BASOPHILS # (AUTO) 0.1 K/uL (0.0-0.2); BASOPHILS % (AUTO) 0.7 % (0.0-2.0); EOSINOPHILS % (AUTO) 3.7 % (0.0-6.0); HEMATOCRIT 33 % (33-45); HEMOGLOBIN 10.5 g/dL (11.5-14.8); LYMPHOCYTES % (AUTO) 22.6 % (20.0-44.0); MEAN CORPUSCULAR HGB CONC 32 g/dl (31.0-36.0); MEAN CORPUSCULAR VOLUME 90 fL (82-100); MONOCYTES % (AUTO) 11.6 % (2.0-12.0); NEUTROPHILS # (AUTO) 5.5 K/uL (1.8-8.9); NEUTROPHILS % (AUTO) 61.4 % (43.0-81.0); PLATELET COUNT (AUTO) 261 K/uL (150-450); RED BLOOD CELL COUNT(AUTO) 3.64 MIL/uL (4.0-5.2); WHITE BLOOD COUNT (AUTO) 8.9 K/uL (4.3-11.0)
--- NOTE | 2022-10-07 06:39 | NUR ---
GPS RN NOTE PT LEFT IN STABLE CONDITION. ALL NEEDS ATTENDED, ALL MEDS ADMINISTERED ON TIMELY MANNER. NO ACUTE DISTRESS, OR PAIN NOTED. WILL ENDORSE PT TO AM SHIFT NURSE FOR CONTINUITY OF CARE.
[2022-10-07 06:52] LABS: CALCIUM, SERUM 9.2 mg/dL (8.5-10.1); CREATININE 0.8 mg/dL (0.6-1.3); POTASSIUM 3.7 mmol/L (3.5-5.1)
[2022-10-07 08:00] VITALS: BP 131/47
[2022-10-07] MEDS: FAMOTIDINE (20 MG) 20 MG TABLET PO SCH (08:53)
[2022-10-07] MEDS: LEVOTHYROXINE SODIUM 25 MCG TABLET PO SCH (08:53)
[2022-10-07] MEDS: BENAZEPRIL HCL 10 MG TABLET PO SCH (08:54)
[2022-10-07] MEDS: SIMETHICONE 80 MG TAB.CHEW PO SCH (08:54)
[2022-10-07] MEDS: MULTIVITAMINS,THERAGRAN 1 UDTAB TABLET PO SCH (08:54)
[2022-10-07] MEDS: DOCUSATE SODIUM 100 MG CAPSULE PO SCH (08:54)
[2022-10-07] MEDS: LITHIUM CARBONATE 150 MG CAPSULE PO SCH ×3 (08:54→16:18)
[2022-10-07] MEDS: GABAPENTIN 100 MG CAPSULE PO SCH ×3 (08:54→16:19)
[2022-10-07] MEDS: FERROUS SULFATE (325 MG) 325 MG/TAB TABLET PO SCH (08:54)
[2022-10-07] MEDS: ASCORBIC ACID 500 MG TABLET PO SCH (08:54)
[2022-10-07] MEDS: ENSURE ENLIVE CHOC 237 ML CAN PO SCH ×2 (08:54→17:08)
[2022-10-07] MEDS: OLANZAPINE 5 MG TABLET PO SCH ×2 (08:54→16:18)
[2022-10-07] MEDS: MEMANTINE HCL 5 MG TABLET PO SCH ×2 (08:54→16:18)
[2022-10-07] MEDS: ATENOLOL 50 MG TABLET PO SCH (08:55)
[2022-10-07] MEDS: CEPHALEXIN MONOHYDRATE 500 MG CAPSULE PO SCH ×2 (08:55→16:19)
[2022-10-07] MEDS: Z GUARD REMEDY 4 OZ OINT TP SCH (09:05)
[2022-10-07] MEDS: LORAZEPAM 0.5 MG TABLET PO PRN ×2 (09:51→18:15)
--- NOTE | 2022-10-07 09:51 | NUR ---
RN NOTE ATIVAN 0.5 MG PO, GIVEN FOR AGITATION, RESTLESSNESS, SCREAMING/YELLING. CURSING. WILL CONTINUE TO MONITOR AND REASSESS PATIENT.
[2022-10-07 16:00] VITALS: BP 119/79
--- NOTE | 2022-10-07 18:15 | NUR ---
RN NOTE ATIVAN 0.5 MG PO GIVEN FOR RESTLESSNEE, SCREAMING/YELLING, CURSING. WILL CONTINUE TO MONITOR AND REASSESS PATIENT.
--- NOTE | 2022-10-07 18:33 | NUR ---
RN NOTE PATIENT UP IN GERICHAIR, CONFUSED AND DISORIENTED. REALITY ORIENTATION PROVIDED NEEDED. STILL WITH EPISODES OF SCREAMING/YELLING, PRN ATIVAN GIVEN ORDERED. REDIRECTED NEEDED. ALL DUE MEDS GIVEN, TAKEN WELL. COMPLIANT WITH MEDS. NEEDS ATENDED. SAFETY MEASURE MAINTAINED WILL ENDORSE TO NEXT SHIFT FOR CONTINUITY OF CARE.
[2022-10-07] MEDS: TEMAZEPAM 7.5 MG CAPSULE PO PRN (21:01)
[2022-10-07 21:59] VITALS: BP 139/72
[2022-10-08 08:00] VITALS: BP 126/63
[2022-10-08] MEDS: ENSURE ENLIVE CHOC 237 ML CAN PO SCH ×2 (08:00→17:00)
[2022-10-08] MEDS: GABAPENTIN 100 MG CAPSULE PO SCH ×3 (09:22→17:28)
[2022-10-08] MEDS: FERROUS SULFATE (325 MG) 325 MG/TAB TABLET PO SCH (09:22)
[2022-10-08] MEDS: MULTIVITAMINS,THERAGRAN 1 UDTAB TABLET PO SCH (09:23)
[2022-10-08] MEDS: LEVOTHYROXINE SODIUM 25 MCG TABLET PO SCH (09:23)
[2022-10-08] MEDS: MEMANTINE HCL 5 MG TABLET PO SCH ×2 (09:23→17:28)
[2022-10-08] MEDS: OLANZAPINE 5 MG TABLET PO SCH ×2 (09:23→17:28)
[2022-10-08] MEDS: DOCUSATE SODIUM 100 MG CAPSULE PO SCH (09:24)
[2022-10-08] MEDS: SIMETHICONE 80 MG TAB.CHEW PO SCH (09:24)
[2022-10-08] MEDS: FAMOTIDINE (20 MG) 20 MG TABLET PO SCH (09:24)
[2022-10-08] MEDS: Z GUARD REMEDY 4 OZ OINT TP SCH (09:25)
[2022-10-08] MEDS: LITHIUM CARBONATE 150 MG CAPSULE PO SCH ×3 (09:26→17:28)
[2022-10-08] MEDS: ASCORBIC ACID 500 MG TABLET PO SCH (09:26)
--- NOTE | 2022-10-08 09:35 | NUR ---
Treatment Plan: Pt refused to sign treatment plan and was very confused.
--- NOTE | 2022-10-08 09:35 | NUR ---
SCOTT Initial Discharge Note: Pt currently resides at [facility] the [address] [place] [place]; [phone]. SCOTT contacted kevin Warren ([phone]) and she stated pt is welcomed back upon discharge. SCOTT will contact pt's daughter Radha ([phone]) to discuss treatment/discharge plan. SCOTT will work with the MD, family, and pt to help coordinate appropriate discharge.
[2022-10-08] MEDS: LORAZEPAM 0.5 MG TABLET PO PRN (10:01)
[2022-10-08] MEDS: CEPHALEXIN MONOHYDRATE 500 MG CAPSULE PO SCH (10:02)
[2022-10-08] MEDS: ATENOLOL 50 MG TABLET PO SCH (10:06)
[2022-10-08] MEDS: BENAZEPRIL HCL 10 MG TABLET PO SCH (10:07)
[2022-10-08] MEDS: PHENAZOPYRIDINE HCL 200 MG TABLET PO PRN ×2 (10:07→17:28)
--- NOTE | 2022-10-08 11:23 | NUR ---
SCOTT Family Contact: SCOTT spoke with pt's daughter HORACIO Garcia ([phone]) and discussed treatment/discharge plan. Daughter was requesting to speak to medical doctor. SCOTT notified Dru that daughter wants to speak. Daughter was concerned that pt should stay on IV antibiotics longer and that she is resistant to oral antibiotics.
--- NOTE | 2022-10-08 14:15 | NUR ---
RN-NOTES RECEIVED T.O ORDER FROM JORY BAKER OF BACTRIM DS 1 TAB P.O BID X 5 DAYS AND TO D/C KEFLEX ORDER. NOTED AND CARRIED OUT.
[2022-10-08 16:13] VITALS: BP 114/56
[2022-10-08] MEDS: SULFAMETH/TRIMETH 800/160 MG 1 UDTAB TABLET PO SCH (17:28)
[2022-10-08 19:33] VITALS: BP 143/67
[2022-10-08] MEDS: TEMAZEPAM 7.5 MG CAPSULE PO PRN (20:35)
[2022-10-09 08:00] VITALS: BP 110/55
[2022-10-09] MEDS: FAMOTIDINE (20 MG) 20 MG TABLET PO SCH (08:00)
[2022-10-09] MEDS: LORAZEPAM 0.5 MG TABLET PO PRN (08:03)
[2022-10-09] MEDS: LEVOTHYROXINE SODIUM 25 MCG TABLET PO SCH (08:03)
--- NOTE | 2022-10-09 08:04 | NUR ---
RN-CO: ATIVAN GIVEN FOR AGITATION.
[2022-10-09] MEDS: ENSURE ENLIVE CHOC 237 ML CAN PO SCH ×2 (08:09→17:14)
[2022-10-09] MEDS: FERROUS SULFATE (325 MG) 325 MG/TAB TABLET PO SCH (09:08)
[2022-10-09] MEDS: ASCORBIC ACID 500 MG TABLET PO SCH (09:08)
[2022-10-09] MEDS: SIMETHICONE 80 MG TAB.CHEW PO SCH (09:09)
[2022-10-09] MEDS: ATENOLOL 50 MG TABLET PO SCH (09:09)
[2022-10-09] MEDS: MULTIVITAMINS,THERAGRAN 1 UDTAB TABLET PO SCH (09:09)
[2022-10-09] MEDS: BENAZEPRIL HCL 10 MG TABLET PO SCH (09:09)
[2022-10-09] MEDS: DOCUSATE SODIUM 100 MG CAPSULE PO SCH (09:14)
[2022-10-09] MEDS: Z GUARD REMEDY 4 OZ OINT TP SCH (09:17)
[2022-10-09] MEDS: LITHIUM CARBONATE 150 MG CAPSULE PO SCH ×3 (09:22→16:24)
[2022-10-09] MEDS: SULFAMETH/TRIMETH 800/160 MG 1 UDTAB TABLET PO SCH ×2 (09:22→16:23)
[2022-10-09] MEDS: GABAPENTIN 100 MG CAPSULE PO SCH ×3 (09:23→16:24)
[2022-10-09] MEDS: OLANZAPINE 5 MG TABLET PO SCH ×2 (09:23→16:24)
[2022-10-09] MEDS: MEMANTINE HCL 5 MG TABLET PO SCH ×2 (09:23→16:23)
--- NOTE | 2022-10-09 09:24 | NUR ---
RN-CO: UNABLE TO SCAN ALL MEDICATION, DID IT MANUALLY DUE TO LOW BATTERY COMPUTER SHOT DOWN WHEN I AM ABOUT TO SAVE IT.
--- NOTE | 2022-10-09 10:57 | NUR ---
RN-CO: PATIENT HAS NO S/S OF DISTRESS, TOOK ALL HER MEDICATIONS. SHE WAS ANXIOUS AND RESTLESS. SHE IS BELLIGERENT TO STAFF AND VERBALLY ABUSIVE. I OFFERED AND ASSISTED HER TO EAT AND DO ADL. I OFFERED FLUIDS. WE WILL CONTINUE TO MONITOR AND KEEP HER SAFE.
[2022-10-09 16:00] VITALS: BP 112/54
--- NOTE | 2022-10-09 19:30 | NUR ---
GPS RN NOTE, RECEIVED PATIENT AWAKE AND IN BED, NO S/S OR COMPLAINTS OF PAIN AT THIS TIME. PATIENT IS DISPLAYING NO S/S OF APPARENT DISTRESS AT THIS TIME. PATIENT BREATHING IS UNLABORED WITH EQUAL RISE AND FALL OF THE CHEST. PATIENT IS ALERT AND ORIENTED X 3 ON ROOM AIR WITH A SPO2 96%. PATIENT IS COMPLIANT WITH MEDICATIONS, ANXIOUS, PARANOID, ISOLATIVE, VERBALLY ABUSIVE, AND COOPERATIVE. PATIENT DENIES SUICIDAL AND HOMICIDAL IDEATIONS AT THIS TIME. PATIENT ASSISTED WITH TURNING AND REPOSITIONING Q2HR AND PRN FOR COMFORT AND CIRCULATION. PATIENT HAS NO NEEDS AT THIS TIME. PATIENT EDUCATED ON THE USE OF THE CALL COOK. PATIENT BED SIDE RAILS UP X 2 FOR SAFETY. PATIENT BED IS LOCKED AND LOW. WILL CONTINUE TO MONITOR THIS PATIENT Q15 MINUTES WITH THE HELP OF STAFF TO MAINTAIN SAFETY.
[2022-10-09 20:04] VITALS: BP 141/79
[2022-10-09] MEDS: TEMAZEPAM 7.5 MG CAPSULE PO PRN (22:02)
[2022-10-10 08:00] VITALS: BP 116/59
[2022-10-10] MEDS: LEVOTHYROXINE SODIUM 25 MCG TABLET PO SCH (08:49)
[2022-10-10] MEDS: SIMETHICONE 80 MG TAB.CHEW PO SCH (08:49)
[2022-10-10] MEDS: FERROUS SULFATE (325 MG) 325 MG/TAB TABLET PO SCH (08:49)
[2022-10-10] MEDS: OLANZAPINE 5 MG TABLET PO SCH ×2 (08:49→16:42)
[2022-10-10] MEDS: ASCORBIC ACID 500 MG TABLET PO SCH (08:50)
[2022-10-10] MEDS: SULFAMETH/TRIMETH 800/160 MG 1 UDTAB TABLET PO SCH ×2 (08:50→16:42)
[2022-10-10] MEDS: GABAPENTIN 100 MG CAPSULE PO SCH ×3 (08:51→16:42)
[2022-10-10] MEDS: FAMOTIDINE (20 MG) 20 MG TABLET PO SCH (08:51)
[2022-10-10] MEDS: LITHIUM CARBONATE 150 MG CAPSULE PO SCH ×3 (08:51→16:42)
[2022-10-10] MEDS: MULTIVITAMINS,THERAGRAN 1 UDTAB TABLET PO SCH (08:51)
[2022-10-10] MEDS: DOCUSATE SODIUM 100 MG CAPSULE PO SCH (08:51)
[2022-10-10] MEDS: MEMANTINE HCL 5 MG TABLET PO SCH ×2 (08:53→16:42)
[2022-10-10 08:54] VITALS: BP 106/60
[2022-10-10] MEDS: BENAZEPRIL HCL 10 MG TABLET PO SCH (08:54)
[2022-10-10] MEDS: ATENOLOL 50 MG TABLET PO SCH (08:54)
[2022-10-10] MEDS: ENSURE ENLIVE CHOC 237 ML CAN PO SCH ×2 (08:56→17:36)
[2022-10-10] MEDS: Z GUARD REMEDY 4 OZ OINT TP PRN (09:23)
[2022-10-10] MEDS: Z GUARD REMEDY 4 OZ OINT TP SCH (09:24)
--- NOTE | 2022-10-10 10:45 | NUR ---
RN Notes: Received asleep in bed, breathing is even and unlabored. Ate 75% for breakfast and compliant on meds. Pt. is verbally abusive, easily got irritated and loud. Encouraged to verbalize feelings and motivated to attend group activity. Morning care rendered and needs attended and will continue to monitor for safety.
[2022-10-10 16:00] VITALS: BP 117/64
--- NOTE | 2022-10-10 19:30 | NUR ---
GPS RN NOTE, RECEIVED PATIENT AWAKE AND IN BED, NO S/S OR COMPLAINTS OF PAIN AT THIS TIME. PATIENT IS DISPLAYING NO S/S OF APPARENT DISTRESS AT THIS TIME. PATIENT BREATHING IS UNLABORED WITH EQUAL RISE AND FALL OF THE CHEST. PATIENT IS ALERT AND ORIENTED X 3 ON ROOM AIR WITH A SPO2 95%. PATIENT IS COMPLIANT WITH MEDICATIONS, ANXIOUS, PARANOID, ISOLATIVE, VERBALLY ABUSIVE, AND COOPERATIVE. PATIENT DENIES SUICIDAL AND HOMICIDAL IDEATIONS AT THIS TIME. PATIENT ASSISTED WITH TURNING AND REPOSITIONING Q2HR AND PRN FOR COMFORT AND CIRCULATION. PATIENT HAS NO NEEDS AT THIS TIME. PATIENT EDUCATED ON THE USE OF THE CALL COOK. PATIENT BED SIDE RAILS UP X 2 FOR SAFETY. PATIENT BED IS LOCKED AND LOW. WILL CONTINUE TO MONITOR THIS PATIENT Q15 MINUTES WITH THE HELP OF STAFF TO MAINTAIN SAFETY.
[2022-10-10 20:00] VITALS: BP 124/64
[2022-10-10] MEDS: TEMAZEPAM 7.5 MG CAPSULE PO PRN (21:28)
[2022-10-11 08:00] VITALS: BP 126/70
[2022-10-11] MEDS: ENSURE ENLIVE CHOC 237 ML CAN PO SCH ×2 (08:10→17:08)
[2022-10-11] MEDS: Z GUARD REMEDY 4 OZ OINT TP SCH (08:11)
[2022-10-11] MEDS: ASCORBIC ACID 500 MG TABLET PO SCH (08:16)
[2022-10-11] MEDS: FERROUS SULFATE (325 MG) 325 MG/TAB TABLET PO SCH (08:16)
[2022-10-11] MEDS: MULTIVITAMINS,THERAGRAN 1 UDTAB TABLET PO SCH (08:16)
[2022-10-11] MEDS: PHENAZOPYRIDINE HCL 200 MG TABLET PO PRN (08:17)
[2022-10-11] MEDS: DOCUSATE SODIUM 100 MG CAPSULE PO SCH (08:17)
[2022-10-11] MEDS: OLANZAPINE 5 MG TABLET PO SCH ×2 (08:17→17:10)
[2022-10-11] MEDS: SIMETHICONE 80 MG TAB.CHEW PO SCH (08:17)
[2022-10-11] MEDS: MEMANTINE HCL 5 MG TABLET PO SCH ×2 (08:17→17:10)
[2022-10-11] MEDS: GABAPENTIN 100 MG CAPSULE PO SCH ×3 (08:17→17:10)
[2022-10-11] MEDS: SULFAMETH/TRIMETH 800/160 MG 1 UDTAB TABLET PO SCH (08:17)
[2022-10-11] MEDS: LEVOTHYROXINE SODIUM 25 MCG TABLET PO SCH (08:17)
[2022-10-11] MEDS: ATENOLOL 50 MG TABLET PO SCH (08:18)
[2022-10-11] MEDS: BENAZEPRIL HCL 10 MG TABLET PO SCH (08:18)
[2022-10-11] MEDS: LITHIUM CARBONATE 150 MG CAPSULE PO SCH ×3 (08:18→17:10)
[2022-10-11] MEDS: FAMOTIDINE (20 MG) 20 MG TABLET PO SCH (08:18)
[2022-10-11 12:00] LABS: BILIRUBIN,URINE NEGATIVE (NEGATIVE); COLOR,URINE ORANGE (YELLOW); LEUKOCYTE ESTERASE ,URINE 3+ (NEGATIVE); NITRITE, URINE POSITIVE (NEGATIVE); PH,URINE 7.5 (5.0-8.0); PROTEIN,URINE 2+ mg/dl (NEGATIVE); UGLUCOSE TRACE mg/dL (NEGATIVE)
[2022-10-11 13:15] LABS: BACTERIA,URINE Many /HPF (None Seen); SQUAMOUS EPITHELIAL CELL,UR Moderate /HPF (None Seen); WBC,URINE 51-80 /HPF (0-3)
[2022-10-11 16:00] VITALS: BP 116/67
[2022-10-11] MEDS: AMOX/CLAVULANATE 250 MG TABLET PO SCH (17:54)
--- NOTE | 2022-10-11 19:30 | NUR ---
GPS RN NOTE, RECEIVED PATIENT AWAKE AND IN BED, NO S/S OR COMPLAINTS OF PAIN AT THIS TIME. PATIENT IS DISPLAYING NO S/S OF APPARENT DISTRESS AT THIS TIME. PATIENT BREATHING IS UNLABORED WITH EQUAL RISE AND FALL OF THE CHEST. PATIENT IS ALERT AND ORIENTED X 3 ON ROOM AIR WITH A SPO2 98%. PATIENT IS COMPLIANT WITH MEDICATIONS, ANXIOUS, PARANOID, ISOLATIVE, VERBALLY ABUSIVE, AND COOPERATIVE. PATIENT DENIES SUICIDAL AND HOMICIDAL IDEATIONS AT THIS TIME. PATIENT ASSISTED WITH TURNING AND REPOSITIONING Q2HR AND PRN FOR COMFORT AND CIRCULATION. PATIENT HAS NO NEEDS AT THIS TIME. PATIENT EDUCATED ON THE USE OF THE CALL COOK. PATIENT BED SIDE RAILS UP X 2 FOR SAFETY. PATIENT BED IS LOCKED AND LOW. WILL CONTINUE TO MONITOR THIS PATIENT Q15 MINUTES WITH THE HELP OF STAFF TO MAINTAIN SAFETY.
[2022-10-11 20:00] VITALS: BP 117/61
[2022-10-11] MEDS: TEMAZEPAM 7.5 MG CAPSULE PO PRN (22:15)
--- NOTE | 2022-10-11 22:16 | NUR ---
GPS RN NOTE, PATIENT HAS A COMPLAINT OF NOT BEING ABLE TO SLEEP AND IS REQUESTING RESTORIL AT THIS TIME. PATIENT VITAL SIGNS ARE STABLE. GAVE RESTORIL 7.5MG PO HS PRN ORDERED. WILL REASSESS FOR INSOMNIA AND I WILL CONTINUE TO MONITOR THIS PATIENT WITH THE HE
[2022-10-12] MEDS: ENSURE ENLIVE CHOC 237 ML CAN PO SCH ×2 (07:29→16:37)
[2022-10-12] MEDS: LEVOTHYROXINE SODIUM 25 MCG TABLET PO SCH (07:55)
[2022-10-12] MEDS: FAMOTIDINE (20 MG) 20 MG TABLET PO SCH (07:55)
[2022-10-12] MEDS: PHENAZOPYRIDINE HCL 200 MG TABLET PO PRN (07:55)
[2022-10-12] MEDS: DOCUSATE SODIUM 100 MG CAPSULE PO SCH (07:56)
[2022-10-12] MEDS: OLANZAPINE 5 MG TABLET PO SCH ×2 (07:56→16:40)
[2022-10-12] MEDS: MEMANTINE HCL 5 MG TABLET PO SCH ×2 (07:56→16:40)
[2022-10-12] MEDS: FERROUS SULFATE (325 MG) 325 MG/TAB TABLET PO SCH (07:56)
[2022-10-12] MEDS: ASCORBIC ACID 500 MG TABLET PO SCH (07:56)
[2022-10-12] MEDS: LITHIUM CARBONATE 150 MG CAPSULE PO SCH ×3 (07:56→16:40)
[2022-10-12] MEDS: ATENOLOL 50 MG TABLET PO SCH (07:57)
[2022-10-12] MEDS: BENAZEPRIL HCL 10 MG TABLET PO SCH (07:57)
[2022-10-12] MEDS: GABAPENTIN 100 MG CAPSULE PO SCH ×3 (07:57→16:40)
[2022-10-12] MEDS: MULTIVITAMINS,THERAGRAN 1 UDTAB TABLET PO SCH (07:58)
[2022-10-12] MEDS: SIMETHICONE 80 MG TAB.CHEW PO SCH (07:59)
[2022-10-12 08:00] VITALS: BP 119/63
[2022-10-12] MEDS: Z GUARD REMEDY 4 OZ OINT TP SCH (08:01)
[2022-10-12] MEDS: AMOX/CLAVULANATE 250 MG TABLET PO SCH ×2 (10:26→16:38)
[2022-10-12 16:00] VITALS: BP 110/59
[2022-10-12 20:20] VITALS: BP 113/68
[2022-10-12] MEDS: TEMAZEPAM 7.5 MG CAPSULE PO PRN (20:28)
[2022-10-13] MEDS: ENSURE ENLIVE CHOC 237 ML CAN PO SCH ×2 (07:36→16:47)
[2022-10-13] MEDS: AMOX/CLAVULANATE 250 MG TABLET PO SCH ×2 (07:42→16:52)
[2022-10-13] MEDS: GABAPENTIN 100 MG CAPSULE PO SCH ×3 (07:43→16:54)
[2022-10-13] MEDS: ASCORBIC ACID 500 MG TABLET PO SCH (07:43)
[2022-10-13] MEDS: FERROUS SULFATE (325 MG) 325 MG/TAB TABLET PO SCH (07:43)
[2022-10-13] MEDS: DOCUSATE SODIUM 100 MG CAPSULE PO SCH (07:43)
[2022-10-13] MEDS: PHENAZOPYRIDINE HCL 200 MG TABLET PO PRN ×2 (07:43→16:54)
[2022-10-13] MEDS: OLANZAPINE 5 MG TABLET PO SCH ×2 (07:43→16:54)
[2022-10-13] MEDS: LEVOTHYROXINE SODIUM 25 MCG TABLET PO SCH (07:44)
[2022-10-13] MEDS: MEMANTINE HCL 5 MG TABLET PO SCH ×2 (07:44→16:54)
[2022-10-13] MEDS: SIMETHICONE 80 MG TAB.CHEW PO SCH (07:44)
[2022-10-13] MEDS: FAMOTIDINE (20 MG) 20 MG TABLET PO SCH (07:44)
[2022-10-13] MEDS: MULTIVITAMINS,THERAGRAN 1 UDTAB TABLET PO SCH (07:44)
[2022-10-13] MEDS: BENAZEPRIL HCL 10 MG TABLET PO SCH (07:45)
[2022-10-13] MEDS: ATENOLOL 50 MG TABLET PO SCH (07:45)
[2022-10-13] MEDS: LITHIUM CARBONATE 150 MG CAPSULE PO SCH ×3 (07:45→16:54)
[2022-10-13] MEDS: Z GUARD REMEDY 4 OZ OINT TP SCH (07:46)
[2022-10-13 08:00] VITALS: BP 103/59
[2022-10-13 16:00] VITALS: BP 107/52
--- NOTE | 2022-10-13 19:30 | NUR ---
GPS RN OPENING NOTE RECEIVED PATIENT IS SITTING IN GERICHAIR IN ACTIVITY ROOM. A/OX1. PT STABLE ON ROOM AIR.NO SOB OR S/S OF RESPIRATORY DISTRESS. BREATHING EVEN AND UNLABORED. PT IS PARANOID AND DISORGANIZED. SAFETY PRECAUTIONS IN PLACE. WILL CONTINUE TO MONITOR Q15MIN ROUNDS FOR SAFETY AND BEHAVIOR.
[2022-10-13 20:38] VITALS: BP 129/77
[2022-10-13] MEDS: TEMAZEPAM 7.5 MG CAPSULE PO PRN (22:26)
[2022-10-14] MEDS: FAMOTIDINE (20 MG) 20 MG TABLET PO SCH (07:57)
[2022-10-14] MEDS: LEVOTHYROXINE SODIUM 25 MCG TABLET PO SCH (07:57)
[2022-10-14 08:00] VITALS: BP 109/58
[2022-10-14] MEDS: ENSURE ENLIVE CHOC 237 ML CAN PO SCH ×2 (08:03→16:14)
[2022-10-14] MEDS: Z GUARD REMEDY 4 OZ OINT TP SCH (08:22)
[2022-10-14] MEDS: LITHIUM CARBONATE 150 MG CAPSULE PO SCH ×3 (08:27→16:15)
[2022-10-14] MEDS: MULTIVITAMINS,THERAGRAN 1 UDTAB TABLET PO SCH (08:27)
[2022-10-14] MEDS: OLANZAPINE 5 MG TABLET PO SCH ×2 (08:27→16:17)
[2022-10-14] MEDS: SIMETHICONE 80 MG TAB.CHEW PO SCH (08:27)
[2022-10-14] MEDS: GABAPENTIN 100 MG CAPSULE PO SCH ×3 (08:28→16:17)
[2022-10-14] MEDS: FERROUS SULFATE (325 MG) 325 MG/TAB TABLET PO SCH (08:28)
[2022-10-14] MEDS: ASCORBIC ACID 500 MG TABLET PO SCH (08:28)
[2022-10-14] MEDS: DOCUSATE SODIUM 100 MG CAPSULE PO SCH (08:28)
[2022-10-14] MEDS: MEMANTINE HCL 5 MG TABLET PO SCH ×2 (08:28→16:14)
[2022-10-14] MEDS: AMOX/CLAVULANATE 250 MG TABLET PO SCH ×2 (08:29→16:14)
[2022-10-14] MEDS: BENAZEPRIL HCL 10 MG TABLET PO SCH (08:30)
[2022-10-14] MEDS: ATENOLOL 50 MG TABLET PO SCH (08:30)
[2022-10-14 16:00] VITALS: BP 122/68
[2022-10-14 20:42] VITALS: BP 134/70
[2022-10-14] MEDS: TEMAZEPAM 7.5 MG CAPSULE PO PRN (20:46)
[2022-10-15 08:00] VITALS: BP 117/64
[2022-10-15] MEDS: LEVOTHYROXINE SODIUM 25 MCG TABLET PO SCH (08:06)
[2022-10-15] MEDS: FAMOTIDINE (20 MG) 20 MG TABLET PO SCH (08:06)
[2022-10-15] MEDS: ATENOLOL 50 MG TABLET PO SCH (08:11)
[2022-10-15] MEDS: LITHIUM CARBONATE 150 MG CAPSULE PO SCH ×3 (08:11→16:31)
[2022-10-15] MEDS: MULTIVITAMINS,THERAGRAN 1 UDTAB TABLET PO SCH (08:12)
[2022-10-15] MEDS: OLANZAPINE 5 MG TABLET PO SCH ×2 (08:12→16:31)
[2022-10-15] MEDS: FERROUS SULFATE (325 MG) 325 MG/TAB TABLET PO SCH (08:12)
[2022-10-15] MEDS: ASCORBIC ACID 500 MG TABLET PO SCH (08:12)
[2022-10-15] MEDS: MEMANTINE HCL 5 MG TABLET PO SCH ×2 (08:12→16:31)
[2022-10-15] MEDS: DOCUSATE SODIUM 100 MG CAPSULE PO SCH (08:12)
[2022-10-15] MEDS: SIMETHICONE 80 MG TAB.CHEW PO SCH (08:12)
[2022-10-15] MEDS: BENAZEPRIL HCL 10 MG TABLET PO SCH (08:12)
[2022-10-15] MEDS: GABAPENTIN 100 MG CAPSULE PO SCH ×3 (08:12→16:31)
[2022-10-15] MEDS: Z GUARD REMEDY 4 OZ OINT TP SCH (08:14)
[2022-10-15] MEDS: ENSURE ENLIVE CHOC 237 ML CAN PO SCH ×2 (08:16→17:03)
[2022-10-15] MEDS: AMOX/CLAVULANATE 250 MG TABLET PO SCH ×2 (08:22→16:31)
--- NOTE | 2022-10-15 09:37 | NUR ---
RN-CO: RECEIVED PATIENT RESTING IN THE HALLWAY. NO ACUTE DISTRESS NOTED. COMPLIANT WITH DAILY MEDICATIONS. ALL NEEDS ATTENDED AND ANTICIPATED WILL CONTINUE TO MONITOR Q15MIN FOR SAFETY AND BEHAVIOR
--- NOTE | 2022-10-15 13:04 | NUR ---
Court Hearing: Patient's court hearing for 3750 was today and it was upheld for GD.
--- NOTE | 2022-10-15 13:04 | NUR ---
Court Notification: SCOTT contacted pt's daughter Radha ([phone]) and left a voicemail of [phone] hearing.
[2022-10-15 16:00] VITALS: BP 119/67
[2022-10-15 20:33] VITALS: BP 129/67
[2022-10-15] MEDS: TEMAZEPAM 7.5 MG CAPSULE PO PRN (20:43)
[2022-10-16] MEDS: LEVOTHYROXINE SODIUM 25 MCG TABLET PO SCH (07:37)
[2022-10-16] MEDS: FAMOTIDINE (20 MG) 20 MG TABLET PO SCH (07:37)
[2022-10-16 08:00] VITALS: BP 114/62
[2022-10-16] MEDS: ENSURE ENLIVE CHOC 237 ML CAN PO SCH ×2 (08:06→17:03)
[2022-10-16] MEDS: GABAPENTIN 100 MG CAPSULE PO SCH ×3 (08:45→16:37)
[2022-10-16] MEDS: OLANZAPINE 5 MG TABLET PO SCH ×2 (08:45→16:38)
[2022-10-16] MEDS: DOCUSATE SODIUM 100 MG CAPSULE PO SCH (08:45)
[2022-10-16] MEDS: ASCORBIC ACID 500 MG TABLET PO SCH (08:45)
[2022-10-16] MEDS: SIMETHICONE 80 MG TAB.CHEW PO SCH (08:45)
[2022-10-16] MEDS: MEMANTINE HCL 5 MG TABLET PO SCH ×2 (08:45→16:38)
[2022-10-16] MEDS: FERROUS SULFATE (325 MG) 325 MG/TAB TABLET PO SCH (08:45)
[2022-10-16] MEDS: LITHIUM CARBONATE 150 MG CAPSULE PO SCH ×3 (08:45→16:38)
[2022-10-16] MEDS: MULTIVITAMINS,THERAGRAN 1 UDTAB TABLET PO SCH (08:46)
[2022-10-16] MEDS: ATENOLOL 50 MG TABLET PO SCH (08:46)
[2022-10-16] MEDS: BENAZEPRIL HCL 10 MG TABLET PO SCH (08:47)
[2022-10-16] MEDS: Z GUARD REMEDY 4 OZ OINT TP SCH (08:48)
[2022-10-16] MEDS: AMOX/CLAVULANATE 250 MG TABLET PO SCH (08:50)
--- NOTE | 2022-10-16 11:57 | NUR ---
SCOTT Family Contact: SCOTT received a call from pt's daughter HORACIO Garcia ([phone]) who was insisting on speaking to medical doctor in regards to pt's oral antibiotics. SCOTT notified Charge nurse to notify assigned MD to give her a call.
--- NOTE | 2022-10-16 12:30 | NUR ---
RN-CO: DR Tom made aware that patient's daughter Radha needs to talk to her. Per Dr Tom she said "OK" . This is with regards to oral antibiotics that the patient is taking for UTI.
[2022-10-16] MEDS: LORAZEPAM 0.5 MG TABLET PO PRN (15:11)
--- NOTE | 2022-10-16 15:11 | NUR ---
NURSE NOTE: PT AGITATED AND YELLING AT THIS TIME. ATIVAN ADMINISTERED ORDERED. PT TEODORA WELL. WILL CONT TO MONITOR.
[2022-10-16 16:00] VITALS: BP 134/69
--- NOTE | 2022-10-16 18:20 | NUR ---
NURSE NOTE: URINE SPEC COLLECTED FOR UA AND UCX VIA I&O CATH. DARK MARGIE URINE COLLECTED. LABELED WITH TIME, DATE, AND INITIALS. LAB CALLED FOR CUSTOMER SERVICE TECHNICIAN. PT TEODORA WELL. WILL CONT TO MONITOR.
[2022-10-16 19:42] LABS: BILIRUBIN,URINE NEGATIVE (NEGATIVE); COLOR,URINE YELLOW (YELLOW); LEUKOCYTE ESTERASE ,URINE 3+ (NEGATIVE); NITRITE, URINE NEGATIVE (NEGATIVE); PROTEIN,URINE NEGATIVE (NEGATIVE); UGLUCOSE NEGATIVE (NEGATIVE); UROBILINOGEN,URINE 0.2 EU/dL (0.2)
[2022-10-16 19:52] VITALS: BP 116/68
[2022-10-16 20:05] LABS: BACTERIA,URINE 2+ /HPF (None Seen); RBC,URINE 0-2 /HPF (0-2); SQUAMOUS EPITHELIAL CELL,UR Few /HPF (None Seen); WBC,URINE TOO NUMEROUS TO COUN /HPF (0-3)
[2022-10-16] MEDS: TEMAZEPAM 7.5 MG CAPSULE PO PRN (22:14)
--- NOTE | 2022-10-17 04:13 | NUR ---
GPS RN NOTE URINE TEST RESULT GIVEN TO DR LOERA, WAITING FOR ANY NEW ORDER.
[2022-10-17 08:00] VITALS: BP 119/69
[2022-10-17] MEDS: ASCORBIC ACID 500 MG TABLET PO SCH (08:29)
[2022-10-17] MEDS: OLANZAPINE 5 MG TABLET PO SCH ×2 (08:29→16:28)
[2022-10-17] MEDS: DOCUSATE SODIUM 100 MG CAPSULE PO SCH (08:29)
[2022-10-17] MEDS: BENAZEPRIL HCL 10 MG TABLET PO SCH (08:30)
[2022-10-17] MEDS: MULTIVITAMINS,THERAGRAN 1 UDTAB TABLET PO SCH (08:30)
[2022-10-17] MEDS: ATENOLOL 50 MG TABLET PO SCH (08:30)
[2022-10-17] MEDS: SIMETHICONE 80 MG TAB.CHEW PO SCH (08:30)
[2022-10-17] MEDS: FAMOTIDINE (20 MG) 20 MG TABLET PO SCH (08:30)
[2022-10-17] MEDS: MEMANTINE HCL 5 MG TABLET PO SCH ×2 (08:30→16:28)
[2022-10-17] MEDS: GABAPENTIN 100 MG CAPSULE PO SCH ×3 (08:30→16:28)
[2022-10-17] MEDS: FERROUS SULFATE (325 MG) 325 MG/TAB TABLET PO SCH (08:30)
[2022-10-17] MEDS: LITHIUM CARBONATE 150 MG CAPSULE PO SCH ×3 (08:31→16:28)
[2022-10-17] MEDS: LEVOTHYROXINE SODIUM 25 MCG TABLET PO SCH (08:31)
[2022-10-17] MEDS: ENSURE ENLIVE CHOC 237 ML CAN PO SCH ×2 (08:31→17:23)
[2022-10-17 08:49] LABS: BASOPHILS % (AUTO) 0.3 % (0.0-2.0); EOSINOPHILS % (AUTO) 4.6 % (0.0-6.0); HEMATOCRIT 34 % (33-45); HEMOGLOBIN 11.2 g/dL (11.5-14.8); LYMPHOCYTES # (AUTO) 1.8 K/uL (0.8-4.8); LYMPHOCYTES % (AUTO) 18.2 % (20.0-44.0); MEAN CORPUSCULAR HGB CONC 33 g/dl (31.0-36.0); MEAN CORPUSCULAR VOLUME 90 fL (82-100); MONOCYTES # (AUTO) 0.8 K/uL (0.1-1.30); MONOCYTES % (AUTO) 8.2 % (2.0-12.0); NEUTROPHILS # (AUTO) 6.6 K/uL (1.8-8.9); NEUTROPHILS % (AUTO) 68.7 % (43.0-81.0); PLATELET COUNT (AUTO) 239 K/uL (150-450); RED BLOOD CELL COUNT(AUTO) 3.84 MIL/uL (4.0-5.2); WHITE BLOOD COUNT (AUTO) 9.6 K/uL (4.3-11.0)
[2022-10-17 09:48] LABS: CALCIUM, SERUM 9.2 mg/dL (8.5-10.1); CARBON DIOXIDE 26 mmol/L (21-32); CHLORIDE 106 mmol/L (98-107); CREATININE 0.7 mg/dL (0.6-1.3); GLUCOSE 103 mg/dL (74-106); MAGNESIUM 2.2 mg/dL (1.8-2.4); PHOSPHORUS 3.1 mg/dL (2.5-4.9); POTASSIUM 3.9 mmol/L (3.5-5.1); SODIUM SERUM 141 mmol/L (136-145); UREA NITROGEN, BLOOD 21 mg/dL (7-18)
[2022-10-17] MEDS: Z GUARD REMEDY 4 OZ OINT TP SCH (09:55)
--- NOTE | 2022-10-17 09:55 | NUR ---
RN Notes: Received pt. asleep in bed, breathing is even and unlabored. Ate 50% for breakfast with staff assistance and compliant on meds. Morning care rendered and pt. reoriented to person, place, day, date and situation. Pt. is loud and easily got irritated. Needs attended and will continue to monitor for safety.
[2022-10-17 16:00] VITALS: BP 113/57
[2022-10-17 20:17] VITALS: BP 107/56
--- NOTE | 2022-10-17 20:29 | NUR ---
RN NOTES: PT. IN THE HALLWAY SITTING UP IN JAJA CHAIR, AWAKE, ALERT, PT. EASILY AGITATED PARANOID, HYPERVERBAL YELLING AT TIMES ,DISORGNIZED, SUSPICIOUS GUARDED, TALKING TO SELF. MED COMPLIANT. NEEDS FREQUENTLY REDIRECTIONS, ALL NEEDS ATTENDED AND ANTICIPATED, WILL CONTINUE TO MONITOR Q 15 FOR SAFETY AND BEHAVIOR.
[2022-10-17 20:30] VITALS: BP 107/63
[2022-10-17] MEDS: LORAZEPAM 0.5 MG TABLET PO PRN (22:33)
--- NOTE | 2022-10-17 22:35 | NUR ---
RN NOTES; ANXIETY PT. NOTED VERY ANXIOUS SCREAMING ,YELLING ,PARNOID, NONREDIRECTABLE, ATIVAN 0.5 MG PO GIVEN WILL CONTINUE TO MONITOR.
[2022-10-18] MEDS: Z GUARD REMEDY 4 OZ OINT TP PRN (06:16)
[2022-10-18 08:00] VITALS: BP 114/59
[2022-10-18] MEDS: ENSURE ENLIVE CHOC 237 ML CAN PO SCH (08:10)
[2022-10-18] MEDS: MULTIVITAMINS,THERAGRAN 1 UDTAB TABLET PO SCH (08:15)
[2022-10-18] MEDS: FAMOTIDINE (20 MG) 20 MG TABLET PO SCH (08:15)
[2022-10-18] MEDS: MEMANTINE HCL 5 MG TABLET PO SCH (08:15)
[2022-10-18] MEDS: OLANZAPINE 5 MG TABLET PO SCH (08:16)
[2022-10-18] MEDS: FERROUS SULFATE (325 MG) 325 MG/TAB TABLET PO SCH (08:16)
[2022-10-18] MEDS: GABAPENTIN 100 MG CAPSULE PO SCH ×2 (08:16→12:43)
[2022-10-18] MEDS: ASCORBIC ACID 500 MG TABLET PO SCH (08:16)
[2022-10-18] MEDS: SIMETHICONE 80 MG TAB.CHEW PO SCH (08:16)
[2022-10-18] MEDS: DOCUSATE SODIUM 100 MG CAPSULE PO SCH (08:16)
[2022-10-18] MEDS: LEVOTHYROXINE SODIUM 25 MCG TABLET PO SCH (08:16)
[2022-10-18] MEDS: LITHIUM CARBONATE 150 MG CAPSULE PO SCH ×2 (08:16→12:43)
[2022-10-18 08:17] VITALS: BP 114/59
[2022-10-18] MEDS: Z GUARD REMEDY 4 OZ OINT TP SCH (08:17)
[2022-10-18] MEDS: BENAZEPRIL HCL 10 MG TABLET PO SCH (08:17)
[2022-10-18] MEDS: ATENOLOL 50 MG TABLET PO SCH (08:17)
--- NOTE | 2022-10-18 11:01 | NUR ---
SCOTT Family Contact: SCOTT received a call from pt's daughter HORACIO Garcia ([phone]) requesting that her brother who is also DPMARIAELENA would want to speak to Dr. Lainez. SCOTT notified Dr. Lainez that son Michael ([phone]) would want to speak to the doctor.
--- NOTE | 2022-10-18 11:02 | NUR ---
Discharge Note: Patient will be discharged back to [[facility] located at [address] [place] [address]; [phone]]. Daughter Radha ([phone]) will vegetable picker pt at 3PM. Per DPOA/Daughter,Radha Kika [phone] stated that she would like the pt. to return to [facility] when the pt. is ready for discharge. Briana ([phone]) admin stated pt is welcomed back. Pt is alert and oriented x1. Patient denies suicidal or homicidal ideation. Patient denies visual/auditory hallucinations. Pt will follow up with at the facility DR. Gray located at [address] [place] [address]; ([phone]) and follow up with Dr. Lainez (psychiatrist) [address] [place] [address]; ([phone]) at the facility. Patient presents with euthymic mood and congruent affect.
--- NOTE | 2022-10-18 11:13 | NUR ---
Facility Contact: SCOTT contacted [facility] the [place] [address]. [place]; [phone]. SCOTT contacted admin Briana ([phone]) and stated pt will be discharging today 10/18 at 3PM. She requested medication list and SW faxed ([phone]).
--- NOTE | 2022-10-18 11:23 | NUR ---
Dr. Lainez gave an order to D/C hold and D/C to [facility] and psychiatrist will send the prescriptions electronically.
--- NOTE | 2022-10-18 13:39 | NUR ---
Facility Contact: SW received a call from [address] [place] [place]; [phone]. SW spoke with Barbara brown ([phone]) and she was requesting dc summary. Pt will have discharge packet upon discharge of instructions. SCOTT spoke with doctor Lainez to expedite dc summary note and she stated she cannot and the facility does not require this the instructions will be in the packet. Dr. Lainez stated she spoke with kevin and that it is resolved.
--- NOTE | 2022-10-18 15:20 | NUR ---
GPS/RN PT DISCHARGED BACK TO [facility]. REPORT GIVEN TO THE FACILITY NURSE [phone].PROPERTY RETURNED. EXIT CARE INSTRUCTIONS AND PRESCRIPTIONS PROVIDED. PT REFUSED TO SIGN TH ED/C FORMS AND TO LET NURSE TO MAKE PICTURES. NO SI OR HI AT THE TIME OF D/C REPORTED. PT LEFT UNIT WITH HER DAUGHTER LILIANE WHO IS WAS HER RIDE TO [facility]
== END 2022-10-18 15:20 | DRG 885 ==
LOC: GPS 18:47
PROVIDERS: ADMIT Psychiatry & Neurology Psychiatry; ATTEND Internal Medicine
DX: F25.9 Schizoaffective disorder, unspecified (principal); G93.41 Metabolic encephalopathy; N39.0 Urinary tract infection, site not specified; F02.84 Dementia in other diseases classified elsewhere, unspecified severity, with anxiety; Z16.29 Resistance to other single specified antibiotic; F02.83 Dementia in other diseases classified elsewhere, unspecified severity, with mood disturbance; F02.82 Dementia in other diseases classified elsewhere, unspecified severity, with psychotic disturbance; F29 Unspecified psychosis not due to a substance or known physiological condition; G30.9 Alzheimer's disease, unspecified; F60.3 Borderline personality disorder; Z20.822 Contact with and (suspected) exposure to COVID-19; B96.20 Unspecified Escherichia coli [E. coli] as the cause of diseases classified elsewhere; F32.9 Major depressive disorder, single episode, unspecified; K21.9 Gastro-esophageal reflux disease without esophagitis; I10 Essential (primary) hypertension; Z91.14 Patient's other noncompliance with medication regimen; F41.9 Anxiety disorder, unspecified
CPT/HCPCS: 36415; 80048-TC; 80061-TC; 81001; 83735-TC; 84100-TC; 85025-TC; 87086-TC; 97116-TC; 97530-TC